=== PATIENT | female | born 1940 | race Caucasian/White ===

== ENCOUNTER 2016-12-26 19:28 | Inpatient (IN) | payer OTHER ==
[2016-12-26] MEDS ORDERED: SODIUM CHLORIDE 500 ML IV STA (19:57)
[2016-12-26] MEDS ORDERED: DUONEB NEB STA (19:58)
--- NOTE | 2016-12-26 20:02 | ED.PDOC ---
General ED Provider: Dr. MARYANN MAYS Chief Complaint: Fever Stated Complaint: patient is a 76 year old femal with a history of Dementia who is brought by Family, lives alone with a two day history of fever and cough productive of sputum. Deneis any shortness of breath, Chest pain or abdominal pain. Has had a poor apatite not drinking enught. she states that she takes her medications in the morning but forget to take her night dose. Time Seen by Physician: 20:02 Mode of Arrival: Walk-In Information Source: Patient Exam Limitations: Dementia Primary Care Provider: MARKEL CONTI Nursing and Triage Documentation Reviewed and Agree: Yes Miscellaneous Complaint Exam - Febrile Illness/Adult Complaint/Exam Onset/Duration: 2 days Symptoms Are: Still present Timing: Constant Highest Temperature Recorded: 101 Initial Severity: Mild Current Severity: Moderate Aggravating: Reports: None Alleviating: Reports: None Associated Signs and Symptoms: Reports: Cough, Altered mental status (per family has been somewhat confused from base line. ). Denies: Headache, Fluid intake, Short of air, Sore throat, Nausea, Vomiting, Chills, Diaphoresis, Dysuria, Arthralgia, Stiff neck, Myalgia, Rash Related History: Reports: Similar episode Pseudomonas Risk Factors: Reports: None Serious Bacterial Infection Risk Factors: Reports: None Current Antibiotic Use: No Specific Findings: Absent: Meningeal signs, Diaphoresis, Joint swelling, Erythema, Cellulitis, Lymphadenopathy, Petechiae, CVA tenderness Differential Diagnoses: Bacteremia, Pneumonia, Sepsis, Viremia Quality Indicators For Pneumonia/CAP: Blood Cultures-SCU admit, SpO2 assessed, Empiric Antibiotic Rx Review of Systems - Review Of Systems Constitutional: Reports: Fever Eyes: Reports: No symptoms Ears, Nose, Mouth, Throat: Reports: No symptoms Respiratory: Reports: Cough Cardiac: Reports: No symptoms GI: Reports: Poor appetite, Poor fluid intake : Reports: No symptoms Musculoskeletal: Reports: No symptoms Skin: Reports: No symptoms Neurological: Reports: Anxiety Endocrine: Reports: No symptoms Hematologic/Lymphatic: Reports: No symptoms All Other Systems: Reviewed and Negative Past Medical History - Past Medical History Previously Healthy: Yes Endocrine: Reports: Hypothyroid, Dyslipidemia Cardiovascular: Reports: None Respiratory: Reports: None Hematological: Reports: None Gastrointestinal: Reports: None Genitourinary: Reports: None Neuro/Psych: Reports: Depression, Dementia Musculoskeletal: Reports: None Cancer: Reports: None Last Menstrual Period: N/A - Surgical History General Surgical History: Reports: Hysterectomy, Orthopedic (Right Knee Replacement ) - Family History Family History: Reports: Unknown - Social History Smoking Status: Current every day smoker Hx Substance Use: No Alcohol Screening: Occasionally Lives: Alone - Immunizations Tetanus Shot up to Date: No (unknown) Physical Exam - Physical Exam Appearance: Ill-appearing, Well-nourished Ill-appearing: Moderate Eyes: CARMEN, EOMI, Conjunctiva clear Neck: Supple Respiratory: Rhonchi (mostly on the Left ) Cardiovascular: RRR, Pulses normal, No rub, No murmur GI/: Soft, Nontender, No masses, Bowel sounds normal, No Organomegaly Musculoskeletal: Normal strength, ROM intact, No edema, No calf tenderness Skin: Warm, Dry, Normal color Neurological: Sensation intact, Motor intact, Reflexes intact, Cranial nerves intact, Alert, Oriented Psychiatric: Anxious Interpretation - Dispensing Audiologist Rate: Normal Rhythm: Other - EKG Interpretation Rate: Normal Rhythm: Other Ectopy: None Stout: NL ST Segment: Normal Interpretation: Atrial fibrillation with normal rate Re-Evaluation - Re-Evaluation Time of Re-Evaluation: 20:39 Status: Improved Vital Signs Stable: Yes (128/93, 98.7) Lungs: Clear (on the upper and anterior, mild basilar rales bilaterally.) Physician Notification - Case Discussed Physician Notified: Conti Time of Notification: 21:20 (Admit to akhtar ) Critical Care Note - Critical Care Note Total Time (mins): 20 Course - Course Hematology/Chemistry: 12/26/16 20:10 12/26/16 20:10 Orders, Labs, Meds: Lab Review 12/26/16 12/26/16 19:51 20:10 WBC 8.09 RBC 4.11 L Hgb 13.9 Hct 40.3 MCV 98.1 MCH 33.8 H MCHC 34.5 RDW Coeff of Kev 12.4 Plt Count 190 Immature Gran % (Auto) 0.2 Neut % (Auto) 81.2 Lymph % (Auto) 10.9 Borden % (Auto) 7.3 Eos % (Auto) 0.2 Baso % (Auto) 0.2 Immature Gran # (Auto) 0.0 Neut # 6.6 Lymph # 0.9 Borden # 0.6 Eos # 0.0 Baso # 0.0 Puncture Site Lb O2 Saturation 88.0 L ABG pH 7.445 ABG pCO2 37.1 ABG pO2 53.0 L* ABG HCO3 25.5 ABG Total CO2 27 ABG Base Excess 1 Jose Luis Test + FiO2 % 21.0 Sodium 136 Potassium 3.7 Chloride 98 Carbon Dioxide 27 Anion Gap 14.7 BUN 21 H Creatinine 0.84 Estimated GFR (MDRD) 66.00 BUN/Creatinine Ratio 25.00 Glucose 120 H Lactic Acid 8.2 Calcium 9.3 Total Bilirubin 0.69 AST 31 ALT 21 Alkaline Phosphatase 52 L Total Protein 7.6 Albumin 4.0 Globulin 3.6 Albumin/Globulin Ratio 1.11 Procalcitonin < 0.05 Orders Category Date Time Status ADMIT PATIENT INPATIENT .TO [facility] (MONITORED BED) ADMISSION 12/26/16 21: 15 Ordered ABG DRAW REQUEST Stat CARDIO 12/26/16 19:51 Completed EKG-(ED ONLY) Stat CARDIO 12/26/16 19:57 Completed EKG-(IP & OP ONLY) Routine CARDIO 12/26/16 21:19 Ordered NEBULIZER TREATMENT Routine CARDIO 12/26/16 21:25 Ordered NEBULIZER TREATMENT Stat CARDIO 12/26/16 19:59 Completed OXYGEN Routine CARDIO 12/26/16 21:15 Ordered ACTIVITY .Up ad Tarsha CARE 12/26/16 21:17 Ordered INTAKE & OUTPUT Q8HR CARE 12/26/16 21:15 Ordered IV ACCESS ONCE CARE 12/26/16 19:51 Active TELEMETRY MONITORING TELE CARE 12/26/16 21:17 Ordered VITAL SIGNS Q4HR CARE 12/26/16 21:17 Ordered REGULAR DIET DIETARY 12/26/16 Breakfast Ordered ED APPLY O2 .ONCE EMERGENCY 12/26/16 19:51 Active ED SPINNING MACHINE OPERATOR APPLIED .ONCE EMERGENCY 12/26/16 19:51 Active ED VITAL SIGNS Q1HR EMERGENCY 12/26/16 19:51 Active IV [ED IV/MEDIPORT/POWERPORT] .ONCE EMERGENCY 12/26/16 20:04 Active ABG Stat LAB 12/26/16 19:51 Completed BASIC METABOLIC PANEL DAILY@0600 LAB 12/27/16 06:00 Ordered BASIC METABOLIC PANEL DAILY@0600 LAB 12/28/16 06:00 Ordered BASIC METABOLIC PANEL DAILY@0600 LAB 12/29/16 06:00 Ordered BASIC METABOLIC PANEL DAILY@0600 LAB 12/30/16 06:00 Ordered BASIC METABOLIC PANEL DAILY@0600 LAB 12/31/16 06:00 Ordered BASIC METABOLIC PANEL DAILY@0600 LAB 01/01/17 06:00 Ordered BASIC METABOLIC PANEL DAILY@0600 LAB 01/02/17 06:00 Ordered BASIC METABOLIC PANEL DAILY@0600 LAB 01/03/17 06:00 Ordered BASIC METABOLIC PANEL DAILY@0600 LAB 01/04/17 06:00 Ordered BASIC METABOLIC PANEL DAILY@0600 LAB 01/05/17 06:00 Ordered BASIC METABOLIC PANEL DAILY@0600 LAB 01/06/17 06:00 Ordered BASIC METABOLIC PANEL DAILY@0600 LAB 01/07/17 06:00 Ordered BASIC METABOLIC PANEL DAILY@0600 LAB 01/08/17 06:00 Ordered BASIC METABOLIC PANEL DAILY@0600 LAB 01/09/17 06:00 Ordered BASIC METABOLIC PANEL DAILY@0600 LAB 01/10/17 06:00 Ordered BASIC METABOLIC PANEL DAILY@0600 LAB 01/11/17 06:00 Ordered BASIC METABOLIC PANEL DAILY@0600 LAB 01/12/17 06:00 Ordered BASIC METABOLIC PANEL DAILY@0600 LAB 01/13/17 06:00 Ordered BASIC METABOLIC PANEL DAILY@0600 LAB 01/14/17 06:00 Ordered BASIC METABOLIC PANEL DAILY@0600 LAB 01/15/17 06:00 Ordered BLOOD CULTURE Stat LAB 12/26/16 20:10 Received CBC W/ AUTO DIFF DAILY@06 LAB 12/27/16 06:00 Ordered CBC W/ AUTO DIFF DAILY@0600 LAB 12/28/16 06:00 Ordered CBC W/ AUTO DIFF DAILY@0600 LAB 12/29/16 06:00 Ordered CBC W/ AUTO DIFF DAILY@0600 LAB 12/30/16 06:00 Ordered CBC W/ AUTO DIFF DAILY@0600 LAB 12/31/16 06:00 Ordered CBC W/ AUTO DIFF DAILY@0600 LAB 01/01/17 06:00 Ordered CBC W/ AUTO DIFF DAILY@0600 LAB 01/02/17 06:00 Ordered CBC W/ AUTO DIFF DAILY@0600 LAB 01/03/17 06:00 Ordered CBC W/ AUTO DIFF DAILY@0600 LAB 01/04/17 06:00 Ordered CBC W/ AUTO DIFF DAILY@0600 LAB 01/05/17 06:00 Ordered CBC W/ AUTO DIFF DAILY@0600 LAB 01/06/17 06:00 Ordered CBC W/ AUTO DIFF DAILY@0600 LAB 01/07/17 06:00 Ordered CBC W/ AUTO DIFF DAILY@0600 LAB 01/08/17 06:00 Ordered CBC W/ AUTO DIFF DAILY@0600 LAB 01/09/17 06:00 Ordered CBC W/ AUTO DIFF DAILY@0600 LAB 01/10/17 06:00 Ordered CBC W/ AUTO DIFF DAILY@0600 LAB 01/11/17 06:00 Ordered CBC W/ AUTO DIFF DAILY@0600 LAB 01/12/17 06:00 Ordered CBC W/ AUTO DIFF DAILY@0600 LAB 01/13/17 06:00 Ordered CBC W/ AUTO DIFF DAILY@0600 LAB 01/14/17 06:00 Ordered CBC W/ AUTO DIFF DAILY@0600 LAB 01/15/17 06:00 Ordered CBC W/ AUTO DIFF Stat LAB 12/26/16 20:10 Completed COMPREHENSIVE METABOLIC PANEL Stat LAB 12/26/16 20:10 Completed LACTIC ACID Stat LAB 12/26/16 20:10 Completed PROCALCITONIN Stat LAB 12/26/16 20:10 Completed URINALYSIS C & S IF INDICATED Stat LAB 12/26/16 20:53 Uncollected 0.9 % Sodium Chloride [Saline Flush] MEDS 12/26/16 20:04 Ordered 1 syr IVF PRN PRN Acetaminophen [Tylenol] MEDS 12/26/16 20:06 Discontinued 650 mg PO ONCE STA Acetaminophen [Tylenol] MEDS 12/26/16 21:15 Ordered 650 mg PO Q4H PRN Aspirin [Aspirin EC] MEDS 12/27/16 09:00 Ordered 81 mg PO DAILY Azithromycin Inj [Zithromax] 500 mg MEDS 12/26/16 20:30 Active 0.9 % Sodium Chloride [Sodium Chloride] 250 ml IV ONCE Azithromycin [Zithromax] MEDS 12/27/16 21:24 Ordered 250 mg PO DAILY Carvedilol [Coreg] MEDS 12/27/16 09:00 Ordered 6.25 mg PO BID Ceftriaxone Sodium [Rocephin] MEDS 12/26/16 20:31 Discontinued 1 gm .ROUTE .STK-MED ONE Ceftriaxone Sodium [Rocephin] 1 gm MEDS 12/27/16 09:00 Ordered 0.9 % Sodium Chloride [Sodium Chloride] 50 ml IV DAILY Ceftriaxone Sodium [Rocephin] 1 gm MEDS 12/26/16 20:30 Active 0.9 % Sodium Chloride [Sodium Chloride] 50 ml IV ONCE Citalopram Hydrobromide [Celexa] MEDS 12/27/16 09:00 Ordered 20 mg PO DAILY Donepezil HCl [Aricept] MEDS 12/27/16 09:00 Ordered 10 mg PO DAILY Enoxaparin Sodium [Lovenox] MEDS 12/26/16 21:15 Stat 100 mg SUBCUT ONCE STA Enoxaparin Sodium [Lovenox] MEDS 12/27/16 09:00 Ordered 100 mg SUBCUT Q12HR Ipratropium/Albuterol Neb [Duoneb] MEDS 12/26/16 19:58 Discontinued 1 vial NEB ONCE STA Ipratropium/Albuterol Neb [Duoneb] MEDS 12/27/16 06:00 Ordered 1 vial NEB RTQID Levothyroxine Sodium [Synthroid] MEDS 12/27/16 09:00 Ordered 50 mcg PO DAILY Memantine HCl [Namenda] MEDS 12/27/16 09:00 Ordered 10 mg PO BID Methylprednisolone Sod Succ/Pf [Solu-Medrol 125 mg] MEDS 12/26/16 21:13 Stat 125 mg IVP ONCE STA Methylprednisolone Sod Succ/Pf [Solu-Medrol 125 mg] MEDS 12/27/16 05:00 Ordered 125 mg IVP Q8HR Ondansetron HCl/Pf [Zofran 4 mg/2 ml] MEDS 12/26/16 21:15 Ordered 4 mg IVP Q6H PRN Pravastatin Sodium [Pravachol] MEDS 12/27/16 09:00 Ordered 40 mg PO DAILY Sodium Chloride 0.9% [Sodium Chloride] 1,000 ml MEDS 12/26/16 21:30 Ordered IV 100 mls/hr Sodium Chloride 0.9% [Sodium Chloride] 500 ml MEDS 12/26/16 19:57 Active IV 250 mls/hr Vitamin B-100 Complex [Balanced B-100] MEDS 12/27/16 09:00 Ordered 1 each PO DAILY RESUSCITATION STATUS Routine OTHERS 12/26/16 21:15 Ordered CHEST, 1V AP ONLY Stat RADS 12/26/16 20:06 Completed OT CONSULTATION Routine THERAPIES 12/26/16 Ordered PT CONSULT Routine THERAPIES 12/26/16 Ordered Medications Generic Name Dose Route Start Last Admin Trade Name Freq PRN Reason Stop Dose Admin Acetaminophen 650 mg 12/26/16 21:15 Tylenol PO Q4H PRN Fever Albuterol/Ipratropium 1 vial 12/27/16 06:00 Chang LAZCANO RTQID [facility] Aspirin 81 mg 12/27/16 09:00 Aspirin Ec PO DAILY [facility] [place] Azithromycin 250 mg 12/27/16 21:24 Zithromax PO 12/30/16 09:01 DAILY [facility] [place] Carvedilol 6.25 mg 12/27/16 09:00 Coreg PO BID [facility] [place] Citalopram Hydrobromide 20 mg 12/27/16 09:00 Celexa PO DAILY [facility] [place] Donepezil HCl 10 mg 12/27/16 09:00 Aricept PO DAILY [facility] [place] Enoxaparin Sodium 100 mg 12/27/16 09:00 Lovenox SUBCUT Q12HR [facility] [place] Sodium Chloride 500 mls @ 250 mls/hr 12/26/16 19:57 12/26/16 20:06 Sodium Chloride IV 12/26/16 21:56 250 mls/hr .Q2H STA Administration Azithromycin 500 mg/ Sodium 250 mls @ 125 mls/hr 12/26/16 20:30 Chloride IV 12/26/16 22:29 ONCE STA Ceftriaxone Sodium 1 gm/ 50 mls @ 75 mls/hr 12/27/16 09:00 Sodium Chloride IV DAILY [facility] [place] Sodium Chloride 1,000 mls @ 100 mls/hr 12/26/16 21:30 Sodium Chloride IV .Q10H [facility] [place] Levothyroxine Sodium 50 mcg 12/27/16 09:00 Synthroid PO DAILY [facility] [place] Memantine 10 mg 12/27/16 09:00 Namenda PO BID [facility] [place] Methylprednisolone Sodium Succinate 125 mg 12/27/16 05:00 Solu-Medrol 125 Mg IVP Q8HR [facility] [place] Ondansetron HCl 4 mg 12/26/16 21:15 Zofran 4 Mg/2 Ml IVP Q6H PRN Nausea / Vomiting Pravastatin Sodium 40 mg 12/27/16 09:00 Pravachol PO DAILY [facility] [place] Sodium Chloride 1 syr 12/26/16 20:04 Saline Flush IVF PRN PRN To flush IV Vitamin B Complex tab 12/27/16 09:00 Balanced B-100 PO DAILY [facility] [place] Discontinued Medications Generic Name Dose Route Start Last Admin Trade Name Xavier PRN Reason Stop Dose Admin Acetaminophen 650 mg 12/26/16 20:06 12/26/16 20:15 Tylenol PO 12/26/16 20:07 650 mg ONCE STA Administration Albuterol/Ipratropium 1 vial 12/26/16 19:58 12/26/16 20:06 Duoneb NEB 12/26/16 19:59 1 vial ONCE STA Administration Enoxaparin Sodium 100 mg 12/26/16 21:15 Lovenox SUBCUT 12/26/16 21:16 ONCE STA Ceftriaxone Sodium 1 gm/ 50 mls @ 75 mls/hr 12/26/16 20:30 12/26/16 20:39 Sodium Chloride IV 12/26/16 21:09 Not Given ONCE STA Methylprednisolone Sodium Succinate 125 mg 12/26/16 21:13 12/26/16 21:19 Solu-Medrol 125 Mg IVP 12/26/16 21:14 125 mg ONCE STA Administration Vital Signs: Temp Pulse Resp BP Pulse Ox 12/26/16 19:51 101.9 F H 90 22 162/100 H 98 12/26/16 19:28 101.8 F H 92 H 16 134/88 94 L Departure - Departure Time of Disposition: 21:30 Disposition: ADMITTED INPATIENT Discharge Problem: Hypoxia, Weakness Acute bronchitis Qualifiers: Bronchitis organism: other organism Qualifier Code: (J20.8) Acute bronchitis due to other specified organisms Atrial fibrillation Qualifiers: Atrial fibrillation type: unspecified Qualifier Code: (I48.91) Unspecified atrial fibrillation Condition: Stable Pt referred to PMD for follow-up: Yes Allergies/Adverse Reactions: Allergies codiene Allergy (Uncoded 12/26/16 19:38) tetanus shot Allergy (Uncoded 12/26/16 19:38) Home Medications: Ambulatory Orders Aspirin [Aspir 81] 81 mg PO DAILY 10/28/15 Carvedilol 6.25 mg PO BID 10/28/15 Citalopram Hydrobromide [Celexa] 20 mg PO DAILY 10/28/15 Donepezil HCl 10 mg PO DAILY 10/28/15 Levothyroxine Sodium 50 mcg PO DAILY 10/28/15 Memantine HCl 10 mg PO BID 10/28/15 Pravastatin Sodium 40 mg PO DAILY 10/28/15 Vitamin B Complex 1 each PO DAILY 10/28/15 Ginkgo Biloba 40 mg PO 12/26/16 Disposition Discussed With: Patient, Family
[2016-12-26] MEDS ORDERED: TYLENOL PO STA (20:06)
[2016-12-26 20:19] LABS: BASOPHILS % (AUTO) 0.2 % (0.0-3.0); EOSINOPHILS % (AUTO) 0.2 % (0.0-7.0); HEMATOCRIT 40.3 % (37.0-47.0); HEMOGLOBIN 13.9 g/dl (12.0-16.0); IMMATURE GRANULOCYTE % (AUTO) 0.2 % (0.0-5.0); LYMPHOCYTES # (AUTO) 0.9 K/uL (0.60-3.4); LYMPHOCYTES % (AUTO) 10.9 (10.0-50.0); MEAN CORPUSCULAR HEMOGLOBIN 33.8 pg (27.0-31.0); MEAN CORPUSCULAR HGB CONC 34.5 (31.8-35.4); MEAN CORPUSCULAR VOLUME 98.1 fl (81.0-99.0); MONOCYTES # (AUTO) 0.6 K/uL (0.4-2.0); MONOCYTES % (AUTO) 7.3 (0-10); NEUTROPHILS # (AUTO) 6.6 K/ul (2.0-6.9); NEUTROPHILS % (AUTO) 81.2; PLATELET COUNT 190 10^3/uL (140-440); RED BLOOD COUNT 4.11 10^6/ul (4.20-5.40); WHITE BLOOD COUNT 8.09 K/ul (4.6-10.2)
[2016-12-26 20:19] LABS: ABG PCO2 37.1 mmHg (35-45); ABG PH 7.445 (7.35-7.45)
[2016-12-26 20:20] LABS: ABG BASE EXCESS 1 (-2.0-2.0); ABG HCO3 25.5 (22.0-26.0); ABG TCO2 27 (22.0-28.0)
[2016-12-26] MEDS ORDERED: ZITHROMAX 500 MG in SODIUM CHLORIDE 250 ML IV STA (20:30)
[2016-12-26] MEDS ORDERED: ROCEPHIN 1 GM in SODIUM CHLORIDE 50 ML IV STA (20:30)
[2016-12-26] MEDS ORDERED: ROCEPHIN ONE (20:31)
--- NOTE | 2016-12-26 20:36 | DI ---
EXAM: Single view chest COMPARISON: None HISTORY: Cough and fever FINDINGS: Lungs are clear with no lobar consolidation, failure, large effusion or significant atele ctasis. There is some relative elevation of the left hemidiaphragm. Cardiac and mediastinal silhouet jose are unremarkable. No acute soft tissue or osseous abnormalities. IMPRESSION: No active disease.
[2016-12-26 20:37] LABS: ALBUMIN/GLOBULIN RATIO 1.11; ANION GAP 14.7; BILIRUBIN,TOTAL 0.69 mg/dL (0.00-1.20); CALCIUM 9.3 mg/dL (8.2-10.2); CREATININE 0.84 mg/dL (0.60-1.30); POTASSIUM 3.7 mmol/L (3.5-5.10); TOTAL PROTEIN 7.6 g/dL (5.8-8.1)
[2016-12-26] MEDS ORDERED: SODIUM CHLORIDE 50 ML IV ONE (20:39)
[2016-12-26] MEDS ORDERED: SOLU-MEDROL 125 MG IVP STA (21:13)
[2016-12-26] MEDS ORDERED: LOVENOX SUBCUT STA (21:15)
[2016-12-26] MEDS ORDERED: ZOFRAN 4 MG/2 ML IVP PRN (21:15)
[2016-12-26] MEDS ORDERED: TYLENOL PO PRN (21:15)
[2016-12-26] MEDS ORDERED: SODIUM CHLORIDE 1,000 ML IV SCH (21:30)
[2016-12-26 23:00] VITALS: BMI 26.6
[2016-12-27 04:50] LABS: BASOPHILS % (AUTO) 0.2 % (0.0-3.0); HEMATOCRIT 41.3 % (37.0-47.0); HEMOGLOBIN 13.8 g/dl (12.0-16.0); IMMATURE GRANULOCYTE % (AUTO) 0.5 % (0.0-5.0); LYMPHOCYTES # (AUTO) 0.6 K/uL (0.60-3.4); LYMPHOCYTES % (AUTO) 10.1 (10.0-50.0); MEAN CORPUSCULAR HEMOGLOBIN 33.2 pg (27.0-31.0); MEAN CORPUSCULAR HGB CONC 33.4 (31.8-35.4); MEAN CORPUSCULAR VOLUME 99.3 fl (81.0-99.0); MONOCYTES # (AUTO) 0.1 K/uL (0.4-2.0); MONOCYTES % (AUTO) 1.6 (0-10); NEUTROPHILS # (AUTO) 5.6 K/ul (2.0-6.9); NEUTROPHILS % (AUTO) 87.6; PLATELET COUNT 183 10^3/uL (140-440); RED BLOOD COUNT 4.16 10^6/ul (4.20-5.40); WHITE BLOOD COUNT 6.33 K/ul (4.6-10.2)
[2016-12-27 05:06] LABS: ANION GAP 14.1; CALCIUM 8.9 mg/dL (8.2-10.2); CREATININE 0.8 mg/dL (0.60-1.30); POTASSIUM 4.1 mmol/L (3.5-5.10)
[2016-12-27] MEDS: SOLU-MEDROL 125 MG IVP SCH ×3 (05:20→20:15)
[2016-12-27] MEDS: DUONEB NEB SCH ×4 (05:40→21:44)
[2016-12-27 05:49] LABS: ADD URINE MICROSCOPIC YES; BILIRUBIN,URINE Negative (NEGATIVE); KETONES,URINE 2+ (NEGATIVE); LEUKOCYTE ESTERASE ,URINE Negative (NEGATIVE); NITRITE,URINE Negative (NEGATIVE); PROTEIN,URINE 2+ (NEGATIVE); URINE, BLOOD 1+ (NEGATIVE)
[2016-12-27 05:50] LABS: BACTERIA,URINE TRACE (NOT PRESENT)
[2016-12-27] MEDS: BALANCED B-100 PO SCH (08:41)
[2016-12-27] MEDS: SYNTHROID PO SCH (08:41)
[2016-12-27] MEDS: NAMENDA PO SCH ×2 (08:41→20:53)
[2016-12-27] MEDS: CELEXA PO SCH (08:41)
[2016-12-27] MEDS: ASPIRIN EC PO SCH (08:41)
[2016-12-27] MEDS: COREG PO SCH ×2 (08:42→17:08)
[2016-12-27] MEDS: PRAVACHOL PO SCH (08:42)
[2016-12-27] MEDS: ARICEPT PO SCH (08:44)
[2016-12-27] MEDS ORDERED: LOVENOX SUBCUT SCH (09:00)
--- NOTE | 2016-12-27 10:39 | PCM.PROG ---
Attending Provider: ATTENDING PROVIDER: Dr. MARKEL ZUNIGA DATE OF SERVICE: 12/27/16 SUBJECTIVE: This 76 year old WHITE/ F was hospitalized 12/26/16 with hypoxemia, acute bronchitis, weakness and atrial fibrillation. The patient reports she feels she is coughing more and feels short of breath; in no distress. The patient is on oxygen at 2L. No fever since last night. REVIEW OF SYSTEMS: CONSTITUTIONAL: No night sweats. Weakness. No fever or chills. HEENT: Eyes: No visual changes. No eye pain. No eye discharge. ENT: No runny nose. No epistaxis. No sinus pain. No odynophagia. No congestion. RESPIRATORY: Cough and congestion. No hemoptysis. CARDIOVASCULAR: No angina symptoms. No CHF symptoms. No atypical chest pain for CAD. No palpitations. Shortness of breath. GASTROINTESTINAL: No abdominal pain. No nausea or vomiting. No diarrhea or constipation. No hematemesis. No hematochezia. GENITOURINARY: No urgency. No frequency. No dysuria. No hematuria. No obstructive symptoms. No discharge. No pain. No significant abnormal bleeding. MUSCULOSKELETAL: No musculoskeletal pain; no joint swelling. NEUROLOGICAL: Awake, alert, oriented to time, place and person. No headache. No neck pain. No syncope. No seizures. No dizziness. PSYCHIATRIC: Has some confusion. Not anxious. No depression. No suicidal thoughts. No homicidal thoughts. SKIN: No rash. No lesions. No wounds. ENDOCRINE: No unexplained weight loss. No weight gain. HEMATOLOGIC/LYMPHATIC: No anemia. No purpura. No petechiae. No prolonged or excessive bleeding. No palpable lymph nodes. PHYSICAL EXAMINATION: GENERAL: The patient is awake, alert with some confusion lying in bed in no distress. VITAL SIGNS: Temperature 97.5 F, Pulse 72, Respiratory Rate 19, BP 110/68, Pulse Ox 97% HEENT: Head normocephalic, atraumatic. Eyes: Extraocular muscles are intact. Pupils are equal, round and reactive to light and accommodation. Ears: No lesions. Nose appeared normal. Throat: No exudate or erythema. NECK: Supple. No JVD, no carotid bruit. No lymphadenopathy or thyromegaly. LUNGS: Decreased breath sounds with bilateral rhonchi. HEART: Heart rate is irregularly irregular consistent with atrial fibrillation. No cyanosis or clubbing. No ascites. Pulses: Dorsalis pedis and posterior tibial pulses +1 to +2 both sides. ABDOMEN: Soft. Non-tender. Bowel sounds active. No CVA tenderness. No mass felt. EXTREMITIES: No edema. Full range of motion of all extremities, equal. NEUROLOGIC: No focal deficit. Cranial nerves II through XII are grossly intact. No headache, no double vision or headache. SKIN: Not dry. Intact. Turgor-normal. LYMPHATIC: No palpable lymph nodes/no lymphedema. MUSCULOSKELETAL: Normal joints with no swelling. Muscle tone is normal. LAB REVIEW: 12/27/16 04:46 12/27/16 04:46 12/27/16 04:46: WBC 6.33, RBC 4.16 L, Hgb 13.8, Hct 41.3, MCV 99.3 H, MCH 33.2 H , MCHC 33.4, RDW Coeff of Kev 12.1, Plt Count 183, Immature Gran % (Auto) 0.5, Neut % (Auto) 87.6, Lymph % (Auto) 10.1, Craig % (Auto) 1.6, Eos % (Auto) 0.0, Baso % (Auto) 0.2, Immature Gran # (Auto) 0.0, Neut # 5.6, Lymph # 0.6, Craig # 0.1 L, Eos # 0.0, Baso # 0.0, Sodium 136, Potassium 4.1, Chloride 100, Carbon Dioxide 26, Anion Gap 14.1, BUN 20 H, Creatinine 0.80, Estimated GFR (MDRD) 70.00, BUN/Creatinine Ratio 25.00, Glucose 127 H, Calcium 8.9 ASSESSMENT: 1. Acute bronchitis 2. Hypoxemia 3. Atrial fibrillation 4. Generalized weakness 5. History of dementia PLAN: 1. Decrease IV fluids to 42 mL/hr 2. Continue Zithromax and Rocephin 3. Continue telemetry protocol 4. Decrease Lovenox from b.i.d. to 100 mg daily 5. Will check to see when last echocardiogram was done 6. Continue Solu-Medrol Plan and coordination of the patient's care discussed in the presence of Digital Forensic Analyst and nurse. CONDITION: Stable SCRIBED BY: Alirio RAMIREZ scribed while in presence of service performed by Dr. MARKEL ZUNIGA/MYA LIMA APRN on 12/27/16 ([id number])
--- NOTE | 2016-12-27 11:13 | PN ---
DATE OF SERVICE: 12/26/16 SUBJECTIVE: The patient is a 76 year old white female came to the emergency room because of fever chills, cough and congestion of nearly 3-4 days duration. The patient has history of Chronic lung disease, asthma. The patient was seen and examined in the Emergency Room attending. Dr. Zhu called me about the patient's blood gases which showed a pO2 53, pCO2 37, pH 7.40 with 88% saturation on room air. REVIEW OF SYSTEMS: CONSTITUTIONAL: No night sweats. No fatigue, malaise, lethargy. No fever or chills. HEENT: Eyes: No visual changes. No eye pain. No eye discharge. ENT: No runny nose. No epistaxis. No sinus pain. No sore throat. No odynophagia. No congestion. RESPIRATORY: No cough, no congestion. No hemoptysis. CARDIOVASCULAR: No angina symptoms. No CHF symptoms. No atypical chest pain for CAD. No palpitations. No shortness of breath. GASTROINTESTINAL: No abdominal pain. No nausea or vomiting. No diarrhea or constipation. No hematemesis. No hematochezia. GENITOURINARY: No urgency. No frequency. No dysuria. No hematuria. No obstructive symptoms. No discharge. No pain. No significant abnormal bleeding. MUSCULOSKELETAL: No musculoskeletal pain; no joint swelling. NEUROLOGICAL: No headache. No neck pain. No syncope. No seizures. No dizziness. PSYCHIATRIC: Not anxious. No depression. No suicidal thoughts. No homicidal thoughts. SKIN: No rash. No lesions. No wounds. ENDOCRINE: No unexplained weight loss. No weight gain. HEMATOLOGIC/LYMPHATIC: No anemia. No purpura. No petechiae. No prolonged or excessive bleeding. No palpable lymph nodes. PHYSICAL EXAMINATION: GENERAL: The patient is oriented to place and person and looks somewhat pale. VITAL SIGNS: HEENT: Head normocephalic, atraumatic. Eyes: Extraocular muscles are intact. Pupils are equal, round and reactive to light and accommodation. Ears: No lesions. Nose appeared normal. Throat: No exudate or erythema. NECK: Supple. No JVP, no carotid bruit. No lymphadenopathy or thyromegaly. LUNGS: Decreased but clear to auscultation. Percussion note normal. Chest symmetrical. HEART: S1, S2, no S3. No murmurs. No cyanosis or clubbing. No ascites. Pulses: Dorsalis pedis and posterior tibial pulses +1 to +2 both sides. ABDOMEN: Soft. Nontender. Bowel sounds active. No CVA tenderness. No mass felt. EXTREMITIES: No edema. Full range of motion of all extremities, equal. NEUROLOGIC: No focal deficit. Cranial nerves II through XII are grossly intact. No headache, no double vision or headache. SKIN: Not dry. Intact. Turgor - normal. LYMPHATIC: No palpable lymph nodes/no lymphedema. MUSCULOSKELETAL: Normal joints with no swelling. Muscle tone is normal. LABS: Chest x-ray looked normal. ASSESSMENT: 1. Pneumonitis/Bronchitis 2. Respiratory failure 3. History of Bronchial asthma PLAN: 1. Antibiotics Azithromycin and Rocephin 2. Solu-Medrol 125mg Q 8 hours 3. NEBS treatment 4. Two Tylenol 6 hourly for fever over 100 5. IV fluids 6. EKG 7. Telemetry 8. Daily CBC and CMP CONDITION: Stable TIME SPENT: More than 30 minutes. ADDENDUM: The patient had an EKG done which showed atrial fibrillation with rate of 85 per minute; will start the patient on Lovenox 1mg per kg to evaluate her further echocardiogram. Examined the old chart to see what her rhythm was in the past. Likely if she has a new atrial fib which could be from high fever. Plan and coordination of the patient's care discussed in the presence of nurse. MARIA LUISA
[2016-12-27] MEDS: SODIUM CHLORIDE 1,000 ML IV SCH ×2 (12:58→18:59)
[2016-12-27] MEDS: ROCEPHIN 1 GM in SODIUM CHLORIDE 50 ML IV SCH (20:52)
[2016-12-27] MEDS: ZITHROMAX PO SCH (20:53)
[2016-12-28] MEDS ORDERED: ATIVAN IVP STA (03:03)
[2016-12-28 04:42] LABS: BASOPHILS % (AUTO) 0.2 % (0.0-3.0); HEMATOCRIT 40.4 % (37.0-47.0); HEMOGLOBIN 13.9 g/dl (12.0-16.0); IMMATURE GRANULOCYTE % (AUTO) 0.3 % (0.0-5.0); LYMPHOCYTES # (AUTO) 1.1 K/uL (0.60-3.4); LYMPHOCYTES % (AUTO) 11.5 (10.0-50.0); MEAN CORPUSCULAR HEMOGLOBIN 32.9 pg (27.0-31.0); MEAN CORPUSCULAR HGB CONC 34.4 (31.8-35.4); MEAN CORPUSCULAR VOLUME 95.5 fl (81.0-99.0); MONOCYTES # (AUTO) 0.3 K/uL (0.4-2.0); MONOCYTES % (AUTO) 3.1 (0-10); NEUTROPHILS # (AUTO) 7.8 K/ul (2.0-6.9); NEUTROPHILS % (AUTO) 84.9; PLATELET COUNT 205 10^3/uL (140-440); RED BLOOD COUNT 4.23 10^6/ul (4.20-5.40); WHITE BLOOD COUNT 9.16 K/ul (4.6-10.2)
[2016-12-28] MEDS ORDERED: HALDOL IM STA ×3 (04:48→23:22)
[2016-12-28] MEDS: SOLU-MEDROL 125 MG IVP SCH ×3 (04:58→20:18)
[2016-12-28 05:03] LABS: ANION GAP 14.4; BUN/CREATININE RATIO 21.05; CALCIUM 9.1 mg/dL (8.2-10.2); CREATININE 0.76 mg/dL (0.60-1.30); POTASSIUM 3.4 mmol/L (3.5-5.10)
[2016-12-28] MEDS: DUONEB NEB SCH ×4 (05:41→19:48)
[2016-12-28] MEDS: SYNTHROID PO SCH (05:57)
[2016-12-28] MEDS ORDERED: POTASSIUM CHLORIDE 10 MEQ VIAL-ADDITIVE ONLY 20 MEQ in SODIUM CHLORIDE 1,000 ML IV SCH (08:28)
[2016-12-28] MEDS: ASPIRIN EC PO SCH (09:00)
[2016-12-28] MEDS: ARICEPT PO SCH (09:01)
[2016-12-28] MEDS: COREG PO SCH ×2 (09:01→17:33)
[2016-12-28] MEDS: PRAVACHOL PO SCH (09:02)
[2016-12-28] MEDS: CELEXA PO SCH (09:02)
[2016-12-28] MEDS: RISPERDAL PO SCH ×2 (09:02→20:17)
[2016-12-28] MEDS: BALANCED B-100 PO SCH (09:02)
[2016-12-28] MEDS: NAMENDA PO SCH ×2 (09:02→20:17)
[2016-12-28] MEDS: LOVENOX SUBCUT SCH (09:03)
--- NOTE | 2016-12-28 11:03 | ECHO2D ---
Date of Exam: 12/27/16 Ordering Physician: MARKEL ZUNIGA Reason for Echo: A-FIB, WEAKNESS M-Mode Normal Adult Results LV Dimensions Normal Adult Results AoV Opening excursions >1.6 >1.6 LVEDD-base- 3.5-5.8 4.0 Ao root dimensions 2.0-3.7 3.0 LVESD-base- 3.1-4.6 L. Atrium dimensions 1.9-3.8 5.2 Post. Wall thickness 0.8-1.1 1.2 IV septum (thickness) 0.7-1.2 1.2 Post. Wall excursion 0.72-1.3 NORMAL Septal motion NORMAL Systolic motion R. Ventricular cavity 1.5-2.0 NORMAL LVEF 60% 72% Paradoxical septal wall motion NORMAL 2-D : NORMAL LEFT VENTRICULAR CONTRACTILITY--NO EFFUSION, NO THROMBUS, ENLARGED LEFT ATRIAL CAVITY--MITRAL VALVE PROLAPSE WITH LEFT PARASTERNAL LONG AXIS AND APICAL FOUR CHAMBER VIEW M-MODE: MV: MITRAL VALVE PROLAPSE LATE SYSTOLIC AV: NORMAL TV: NORMAL PV: CHAMBER SIZE: ENLARGED LEFT ATRIAL CAVITY WALL MOTION: NORMAL PERICARDIUM: NORMAL INTERPRETATION: 1. MITRAL VALVE PROLAPSE LATE SYSTOLIC 2. MILD LEFT VENTRICULAR HYPERTROPHY 3. ENLARGED LEFT ATRIAL CAVITY 4. NORMAL LEFT VENTRICULAR CONTRACTILITY 5. NORMAL VALVES MTDD
--- NOTE | 2016-12-28 11:45 | PCM.PROG ---
Attending Provider: ATTENDING PROVIDER: Dr. MARKEL ZUNIGA DATE OF SERVICE: 12/28/16 SUBJECTIVE: This 76 year old WHITE/ F was hospitalized 12/26/16. The patient is up in wheelchair at nurse's station with on and off bouts of confusion. During the night, the patient was given Ativan and Haldol for acute confusion. The patient has history of dementia. She is no longer on o2 with 93% on room air at nurse's station. REVIEW OF SYSTEMS: CONSTITUTIONAL: No night sweats. No fatigue, malaise, lethargy. No fever or chills. HEENT: Eyes: No visual changes. No eye pain. No eye discharge. ENT: No runny nose. No epistaxis. No sinus pain. No odynophagia. No congestion. RESPIRATORY: Cough. No hemoptysis. CARDIOVASCULAR: No angina symptoms. No CHF symptoms. No atypical chest pain for CAD. No palpitations. No shortness of breath. GASTROINTESTINAL: No abdominal pain. No nausea or vomiting. No diarrhea or constipation. No hematemesis. No hematochezia. GENITOURINARY: No urgency. No frequency. No dysuria. No hematuria. No obstructive symptoms. No discharge. No pain. No significant abnormal bleeding. MUSCULOSKELETAL: No musculoskeletal pain; no joint swelling. NEUROLOGICAL: Confusion. No headache. No neck pain. No syncope. No seizures. No dizziness. PSYCHIATRIC: Not anxious. No depression. No suicidal thoughts. No homicidal thoughts. SKIN: No rash. No lesions. No wounds. ENDOCRINE: No unexplained weight loss. No weight gain. HEMATOLOGIC/LYMPHATIC: No anemia. No purpura. No petechiae. No prolonged or excessive bleeding. No palpable lymph nodes. PHYSICAL EXAMINATION: GENERAL: The patient is awake, alert but not oriented, in no distress. VITAL SIGNS: Temperature 98 F, Pulse 88, Respiratory Rate 18, BP 134/93, Pulse Ox 98% HEENT: Head normocephalic, atraumatic. Eyes: Extraocular muscles are intact. Pupils are equal, round and reactive to light and accommodation. Ears: No lesions. Nose appeared normal. Throat: No exudate or erythema. NECK: Supple. No JVD, no carotid bruit. No lymphadenopathy or thyromegaly. LUNGS: Bilateral rhonchi, improving. Percussion note normal. Chest symmetrical. HEART: S1, S2, no S3. Heart rate irregular in atrial fibrillation. No cyanosis or clubbing. No ascites. Pulses: Dorsalis pedis and posterior tibial pulses +1 to +2 both sides. ABDOMEN: Soft. Non-tender. Bowel sounds active. No CVA tenderness. No mass felt. EXTREMITIES: No edema. Full range of motion of all extremities, equal. NEUROLOGIC: No focal deficit. Cranial nerves II through XII are grossly intact. No headache, no double vision or headache. SKIN: Not dry. Intact. Turgor-normal. LYMPHATIC: No palpable lymph nodes/no lymphedema. MUSCULOSKELETAL: Normal joints with no swelling. Muscle tone is normal. LAB REVIEW: 12/28/16 04:38 12/28/16 04:38 12/28/16 04:38: WBC 9.16, RBC 4.23, Hgb 13.9, Hct 40.4, MCV 95.5, MCH 32.9 H, MCHC 34.4, RDW Coeff of Kev 11.8, Plt Count 205, Immature Gran % (Auto) 0.3, Neut % (Auto) 84.9, Lymph % (Auto) 11.5, Mineral % (Auto) 3.1, Eos % (Auto) 0.0, Baso % (Auto) 0.2, Immature Gran # (Auto) 0.0, Neut # 7.8 H, Lymph # 1.1, Mineral # 0.3 L, Eos # 0.0, Baso # 0.0, Sodium 134 L, Potassium 3.4 L, Chloride 101, Carbon Dioxide 22 L, Anion Gap 14.4, BUN 16, Creatinine 0.76, Estimated GFR ( MDRD) 74.00, BUN/Creatinine Ratio 21.05, Glucose 155 H, Calcium 9.1 ASSESSMENT: 1. Acute bronchitis, improving 2. Hypoxemia resolved 3. Generalized weakness 4. Atrial fibrillation 5. Dementia with behavioral disturbances PLAN: 1. Discharge with 02 as tolerates. 2. Potassium 3.4, will add 20 mEq potassium 3. Fall precaution - closely monitor by nursing staff 4. Continue telemetry 5. Continue Rocephin, Zithromax and Solu-Medrol 6. The patient is improving. Plan and coordination of the patient's care discussed in the presence of Rn Surgical and nurse. CONDITION: Stable SCRIBED BY: KAREY WILSON, Manager Hospice scribed while in presence of service performed by Dr. MARKEL ZUNIGA/MYA LIMA APRN on 12/28/16 (08)
[2016-12-28] MEDS ORDERED: SODIUM CHLORIDE 0.9%-KCL 20 MEQ 1,000 ML IV SCH (17:00)
[2016-12-28] MEDS: ROCEPHIN 1 GM in SODIUM CHLORIDE 50 ML IV SCH (20:16)
[2016-12-28] MEDS: ZITHROMAX PO SCH (20:17)
[2016-12-29] MEDS: SOLU-MEDROL 125 MG IVP SCH (04:44)
[2016-12-29] MEDS: DUONEB NEB SCH ×2 (05:55→10:18)
[2016-12-29] MEDS: SYNTHROID PO SCH (05:56)
[2016-12-29 06:07] LABS: HEMATOCRIT 38.5 % (37.0-47.0); HEMOGLOBIN 13.3 g/dl (12.0-16.0); IMMATURE GRANULOCYTE % (AUTO) 0.3 % (0.0-5.0); LYMPHOCYTES # (AUTO) 0.9 K/uL (0.60-3.4); LYMPHOCYTES % (AUTO) 12.8 (10.0-50.0); MEAN CORPUSCULAR HEMOGLOBIN 33.3 pg (27.0-31.0); MEAN CORPUSCULAR HGB CONC 34.5 (31.8-35.4); MEAN CORPUSCULAR VOLUME 96.3 fl (81.0-99.0); MONOCYTES # (AUTO) 0.2 K/uL (0.4-2.0); MONOCYTES % (AUTO) 2.5 (0-10); NEUTROPHILS # (AUTO) 5.8 K/ul (2.0-6.9); NEUTROPHILS % (AUTO) 84.4; PLATELET COUNT 193 10^3/uL (140-440); WHITE BLOOD COUNT 6.87 K/ul (4.6-10.2)
[2016-12-29 06:27] LABS: ANION GAP 9.6; BUN/CREATININE RATIO 20.51; CALCIUM 8.8 mg/dL (8.2-10.2); CREATININE 0.78 mg/dL (0.60-1.30); POTASSIUM 3.6 mmol/L (3.5-5.10)
[2016-12-29] MEDS: ASPIRIN EC PO SCH (08:30)
[2016-12-29] MEDS: COREG PO SCH (08:31)
--- NOTE | 2016-12-29 09:23 | HP ---
DATE OF SERVICE: 12/26/16 HISTORY OF PRESENT ILLNESS: The patient was brought to the ER by a family member. She has a history of dementia. She was brought in with a history of fever and cough times two days with productive sputum, mild shortness of breath. She has no chest pain or abdominal pain. She has had a poor appetite and has not been drinking very well. She is subsequently admitted with acute bronchitis. REVIEW OF SYSTEMS: CONSTITUTIONAL: Fever. No night sweats. No fatigue, malaise, lethargy. HEENT: Eyes: No visual changes. No eye pain. No eye discharge. ENT: No runny nose. No epistaxis. No sinus pain. No sore throat. No odynophagia. No ear pain. No congestion. RESPIRATORY: Cough. No hemoptysis. CARDIOVASCULAR: No angina symptoms. No CHF symptoms. No atypical chest pain for CAD. No palpitations. Shortness of breath. GASTROINTESTINAL: Poor appetite. No abdominal pain. No nausea or vomiting. No diarrhea or constipation. No hematemesis. No hematochezia. GENITOURINARY: No urgency. No frequency. No dysuria. No hematuria. No obstructive symptoms. No discharge. No pain. No significant abnormal bleeding. MUSCULOSKELETAL: Generalized weakness. . NEUROLOGICAL: History of dementia. Has bouts of confusion. No headache. No neck pain. No syncope. No seizures. No dizziness. PSYCHIATRIC: Anxious. No depression. No suicidal thoughts. No homicidal thoughts. SKIN: No rash. No lesions. No wounds. ENDOCRINE: No unexplained weight loss. No weight gain. HEMATOLOGIC/LYMPHATIC: No anemia. No purpura. No petechiae. No prolonged or excessive bleeding. No palpable lymph nodes. PERSONAL/FAMILY/SOCIAL HISTORY: The patient is a nonsmoker, no history of substance abuse. No history of alcoholism. PAST MEDICAL HISTORY: 1. Hypothyroidism 2. Dyslipidemia 3. Depression 4. Dementia 5. COPD 6. History of atrial fibrillation with refusal of blood thinners PAST SURGICAL HISTORY: 1. Hysterectomy 2. Total right knee replacement MEDICATIONS: 1. Citalopram (Celexa) 20 mg p.o. daily 2. Aspirin 81 mg p.o. bedtime 3. Vitamin B Complex one each p.o. daily 4. Levothyroxine 50 mcg p.o. daily 5. Carvedilol 6.25 mg p.o.b.i.d. 6. Memantine 10 mg p.o. daily 7. Pravastatin 40 mg p.o. bedtime 8. Donepezil 10 mg p.o. bedtime ALLERGIES: CODEINE, TETANUS SHOT LABS: EKG showed atrial fibrillation with normal rate. Chest x-ray was normal with no active disease. WBC 8,000. Hemoglobin 13.9, hematocrit 40.3. ABG - pH 7.4, pc02 37.1, p02 53, HC03 25.5. Total c02 27, BUN 21, creatinine 0.84. PHYSICAL EXAMINATION: VITAL SIGNS: Temperature 101, pulse 92, BP 134/88, 02 sat 94, respiratory rate 16. Height 5'7". Weight 200 lb. HEENT: Head normocephalic, atraumatic. Eyes: Extraocular muscles are intact. Pupils are equal, round and reactive to light and accommodation. Ears: No lesions. Nose appeared normal. Throat: No exudate or erythema. NECK: Supple. No JVD, no carotid bruit. No lymphadenopathy or thyromegaly. LUNGS: Clear to auscultation. Percussion note normal. Chest symmetrical. HEART: S1, S2, irregular rate and rhythm consistent with atrial fibrillation. No cyanosis or clubbing. No ascites. Pulses: Dorsalis pedis and posterior tibial pulses +1 to +2 both sides. ABDOMEN: Soft. Nontender. Bowel sounds active times four quadrants. No CVA tenderness. No mass felt. EXTREMITIES: No edema. Full range of motion of all extremities, equal. NEUROLOGIC: Alert, oriented times two. No focal deficit. Cranial nerves II through XII are grossly intact. No headache, no double vision or headache. SKIN: No breakdown. LYMPHATIC: No palpable lymph nodes/no lymphedema. MUSCULOSKELETAL: Generalized weakness from poor appetite and illness. ASSESSMENT: 1. ACUTE BRONCHITIS 2. ATRIAL FIBRILLATION 3. COPD 4. HYPOXEMIA 5. GENERALIZED WEAKNESS PLAN: 1. Admit the patient 2. IV Rocephin q.24 hr 3. Zithromax p.o. 4. CBC, CMP daily 5. 02 via nasal cannula at 2L as tolerated 6. IV fluids 7. Monitor I & O 8. Routine telemetry orders 9. Duonebs q.i.d. 10. The patient is a full code 11. Fall precautions 12. Tylenol for fever 13. Continue all home medications TIME SPENT: More than 70 minutes. MTDD
--- NOTE | 2016-12-29 09:37 | PN ---
DATE OF SERVICE: 12/27/16 SUBJECTIVE: 76-year-old white female hospitalized with acute respiratory failure, acute bronchitis. The patient also has atrial fib with normal ventricular response. The patient is feeling better. REVIEW OF SYSTEMS: CONSTITUTIONAL: No night sweats. No fatigue, malaise, lethargy. No fever or chills. HEENT: Eyes: No visual changes. No eye pain. No eye discharge. ENT: No runny nose. No epistaxis. No sinus pain. No sore throat. No odynophagia. No congestion. RESPIRATORY: Mild cough, no congestion. No hemoptysis. CARDIOVASCULAR: No angina symptoms. No CHF symptoms. No atypical chest pain for CAD. No palpitations. Shortness of breath. GASTROINTESTINAL: No abdominal pain. No nausea or vomiting. No diarrhea or constipation. No hematemesis. No hematochezia. GENITOURINARY: No urgency. No frequency. No dysuria. No hematuria. No obstructive symptoms. No discharge. No pain. No significant abnormal bleeding. MUSCULOSKELETAL: No musculoskeletal pain; no joint swelling. NEUROLOGICAL: No headache. No neck pain. No syncope. No seizures. No dizziness. PSYCHIATRIC: Not anxious. No depression. No suicidal thoughts. No homicidal thoughts. SKIN: No rash. No lesions. No wounds. ENDOCRINE: No unexplained weight loss. No weight gain. HEMATOLOGIC/LYMPHATIC: No anemia. No purpura. No petechiae. No prolonged or excessive bleeding. No palpable lymph nodes. PHYSICAL EXAMINATION: GENERAL: The patient seems to be oriented to person but confused about the date , time. The daughter is in the room. VITAL SIGNS: Temperature 97.5, pulse 70/min, respiratory rate 19, BP 110/68, pulse ox 97%. HEENT: Head normocephalic, atraumatic. Eyes: Extraocular muscles are intact. Pupils are equal, round and reactive to light and accommodation. Ears: No lesions. Nose appeared normal. Throat: No exudate or erythema. NECK: Supple. No JVD, no carotid bruit. No lymphadenopathy or thyromegaly. LUNGS: Decreased breath sounds. Clear to auscultation. Percussion note normal. Chest symmetrical. HEART: S1, S2, no S3. No murmurs. No cyanosis or clubbing. No ascites. Pulses: Dorsalis pedis and posterior tibial pulses +1 to +2 both sides. ABDOMEN: Soft. Nontender. Bowel sounds active. No CVA tenderness. No mass felt. EXTREMITIES: No edema. Full range of motion of all extremities, equal. NEUROLOGIC: No focal deficit. Cranial nerves II through XII are grossly intact. No headache, no double vision or headache. SKIN: Not dry. Intact. Turgor - normal. LYMPHATIC: No palpable lymph nodes/no lymphedema. MUSCULOSKELETAL: Normal joints with no swelling. Muscle tone is normal. ASSESSMENT: 1. ACUTE PNEUMONITIS/BRONCHITIS 2. BRONCHIAL ASTHMA 3. ATRIAL FIBRILLATION, NEW ONSET. CHADS2 - WILL START PATIENT ON LOVENOX. LATER ON WILL DECIDE ABOUT THE PERMANENT ANTICOAGULATION. 4. OTHER DIAGNOSES ARE STABLE LIKE HYPERTENSION, DEMENTIA, DEPRESSION, HYPOTHYROIDISM. The patient had an echo done which showed markedly enlarged LA cavity which is approximately more than 5 cm. Normal LV contractility with LVH. Normal valves with possibility of mitral valve prolapse with maybe trace mitral regurgitation. CONDITION: Stable TIME SPENT: More than 30 minutes. Plan and coordination of the patient's care discussed in the presence of nurse. MARIA LUISA
[2016-12-29] MEDS: RISPERDAL PO SCH (09:45)
[2016-12-29] MEDS: PRAVACHOL PO SCH (09:45)
[2016-12-29] MEDS: NAMENDA PO SCH (09:45)
[2016-12-29] MEDS: ARICEPT PO SCH (09:45)
[2016-12-29] MEDS: CELEXA PO SCH (09:45)
[2016-12-29] MEDS: BALANCED B-100 PO SCH (09:46)
[2016-12-29] MEDS: LOVENOX SUBCUT SCH (09:46)
--- NOTE | 2016-12-29 11:22 | PN ---
DATE OF SERVICE: 12/29/16 SUBJECTIVE: 76-year-old white female hospitalized with acute respiratory failure, hypoxemia. The patient is doing well, she has improved alot. There are no symptoms of bronchitis. She is oriented to place and person. As usual, the patient for the past two nights had confusion, abnormal behavior, responded some to Risperdal and Haldol. REVIEW OF SYSTEMS: CONSTITUTIONAL: No night sweats. No fatigue, malaise, lethargy. No fever or chills. HEENT: Eyes: No visual changes. No eye pain. No eye discharge. ENT: No runny nose. No epistaxis. No sinus pain. No sore throat. No odynophagia. No congestion. RESPIRATORY: No cough, no congestion. No hemoptysis. CARDIOVASCULAR: No angina symptoms. No CHF symptoms. No atypical chest pain for CAD. No palpitations. No shortness of breath. GASTROINTESTINAL: No abdominal pain. No nausea or vomiting. No diarrhea or constipation. No hematemesis. No hematochezia. GENITOURINARY: No urgency. No frequency. No dysuria. No hematuria. No obstructive symptoms. No discharge. No pain. No significant abnormal bleeding. MUSCULOSKELETAL: No musculoskeletal pain; no joint swelling. NEUROLOGICAL: No headache. No neck pain. No syncope. No seizures. No dizziness. PSYCHIATRIC: Not anxious. No depression. No suicidal thoughts. No homicidal thoughts. SKIN: No rash. No lesions. No wounds. ENDOCRINE: No unexplained weight loss. No weight gain. HEMATOLOGIC/LYMPHATIC: No anemia. No purpura. No petechiae. No prolonged or excessive bleeding. No palpable lymph nodes. PHYSICAL EXAMINATION: GENERAL: The patient is oriented to place and person sitting in the chair, in no distress. VITAL SIGNS: Temperature 97.4, pulse 76, respiratory rate 20, BP 140/88. Pulse ox 94% on room air. HEENT: Head normocephalic, atraumatic. Eyes: Extraocular muscles are intact. Pupils are equal, round and reactive to light and accommodation. Ears: No lesions. Nose appeared normal. Throat: No exudate or erythema. NECK: Supple. No JVD, no carotid bruit. No lymphadenopathy or thyromegaly. LUNGS: Clear to auscultation. Percussion note normal. Chest symmetrical. HEART: S1, S2, no S3. No murmurs. No cyanosis or clubbing. No ascites. Pulses: Dorsalis pedis and posterior tibial pulses +1 to +2 both sides. ABDOMEN: Soft. Nontender. Bowel sounds active. No CVA tenderness. No mass felt. EXTREMITIES: No edema. Full range of motion of all extremities, equal. NEUROLOGIC: No focal deficit. Cranial nerves II through XII are grossly intact. No headache, no double vision or headache. SKIN: Not dry. Intact. Turgor - normal. LYMPHATIC: No palpable lymph nodes/no lymphedema. MUSCULOSKELETAL: Normal joints with no swelling. Muscle tone is normal. LABS: Hemoglobin 13.3, hematocrit 38, WBC 6,800, normal differential. Creatinine 0.7, BUN 16, potassium 3.6. ASSESSMENT: 1. ACUTE RESPIRATORY FAILURE RESOLVED 2. BRONCHITIS RESOLVED 3. CHRONIC LUNG DISEASE 4. DEMENTIA The family and the daughters are aware of the fact that the patient has dementia off and on. Change of place, hospital psychosis has caused worsening of dementia especially in the evening hours. The family is advised to have someone at home with her all the time. Dementia is early. She is functional. She is up and about. CONDITION: Stable. TIME SPENT: More than 30 minutes. Plan and coordination of the patient's care discussed in the presence of nurse. MARIA LUISA
--- NOTE | 2016-12-29 12:11 | CM.DICTOOL ---
ADMISSION: 12/26/16 21:43 DISCHARGE: 12/29/16 DATE OF SERVICE: 12/29/16 FINAL DIAGNOSIS BRONCHITIS/CHRONIC LUNG DISEASE HYPOXEMIA DEMENTIA A-FIB HYPERTENSION HYPOTHYROIDISM DYSLIPIDEMIA DEPRESSION/ANXIETY CURRENT EVERY DAY SMOKER OCCASIONAL ETOH HYSTERECTOMY RIGHT KNEE ARTHROPLASTY LAST VITALS Temp Pulse Resp BP Pulse Ox 97.4 F L 76 20 140/88 94 L 12/29/16 05:55 12/29/16 05:55 12/29/16 05:55 12/29/16 05:55 12/29/16 05:55 ACTIVE MEDICATIONS Aspirin (Aspirin Ec) 81 mg PO [facility] Last Admin: 12/29/16 08:30 Dose: 81 mg Carvedilol (Coreg) 6.25 mg PO BIDWM [facility] Last Admin: 12/29/16 08:31 Dose: 6.25 mg Citalopram Hydrobromide (Celexa) 20 mg PO DAILY [facility] Last Admin: 12/29/16 09:45 Dose: 20 mg Donepezil HCl (Aricept) 10 mg PO DAILY [facility] Last Admin: 12/29/16 09:45 Dose: 10 mg Levothyroxine Sodium (Synthroid) 50 mcg PO QDAC [facility] Last Admin: 12/29/16 05:56 Dose: 50 mcg Memantine (Namenda) 10 mg PO BID [facility] (INCREASED FROM 10 MG PO DAILY) Last Admin: 12/29/16 09:45 Dose: 10 mg Pravastatin Sodium (Pravachol) 40 mg PO DAILY [facility] Last Admin: 12/29/16 09:45 Dose: 40 mg Vitamin B Complex (Balanced B-100) 1 tab PO DAILY [facility] Last Admin: 12/29/16 09:46 Dose: 1 tab ALLERGIES codiene Allergy (Uncoded 12/26/16 19:38) tetanus shot Allergy (Uncoded 12/26/16 19:38) NEW PRESCRIPTIONS: PLEASE NOTE THE INCREASE IN YOUR MEMANTINE HCL (NAMENDA) TO 10 MG BY MOUTH TWICE DAILY KEFLEX 500 MG, TAKE ONE CAPSULE BY MOUTH EVERY 8 HOURS FOR 7 DAYS PREDNISONE 10 MG, TAKE ONE TABLET BY MOUTH DAILY WITH FOOD FOR 7 DAYS SMOKING: DISCUSSED SMOKING CESSATION AND THE BENEFITS OF COMPLETE CESSATION THE PATIENT HAS NOT MADE A VERBAL COMMITMENT FOR CESSATION OR DECREASING THE AMOUNT SHE SMOKES. SHE DID NOT SMOKE DURING THE HOSPITAL STAY. DISEASE SPECIFIC EDUCATION: ATRIAL FIBRILLATION BRONCHITIS HYPOXEMIA FOLLOW UP HOME MEDICATIONS NEW PRESCRIPTIONS STEROID USE INCLUDING BENEFITS VS RISKS SUCH POSSIBLE BONE DEMINERALIZATION AND CATARACTS LAB REVIEW: 12/29/16 05:30 12/29/16 05:30 12/29/16 05:30: WBC 6.87, RBC 4.00 L, Hgb 13.3, Hct 38.5, MCV 96.3, MCH 33.3 H, MCHC 34.5, RDW Coeff of Kev 11.9, Plt Count 193, Immature Gran % (Auto) 0.3, Neut % (Auto) 84.4, Lymph % (Auto) 12.8, Jerome % (Auto) 2.5, Eos % (Auto) 0.0, Baso % (Auto) 0.0, Immature Gran # (Auto) 0.0, Neut # 5.8, Lymph # 0.9, Jerome # 0.2 L, Eos # 0.0, Baso # 0.0, Sodium 141, Potassium 3.6, Chloride 108 H, Carbon Dioxide 27, Anion Gap 9.6, BUN 16, Creatinine 0.78, Estimated GFR (MDRD) 72.00, BUN/Creatinine Ratio 20.51, Glucose 154 H, Calcium 8.8 PLAN: DISCHARGE HOME TODAY RETURN TO SEE DR. ZUNIGA IN 5-7 DAYS. PLEASE PHONE THE OFFICE TO SCHEDULE YOUR FOLLOW UP APPOINTMENT ([phone]) RESUME YOUR HOME MEDICATIONS PER LIST PROVIDED BY THE NURSING STAFF PLEASE NOTE THE INCREASE IN YOUR MEMANTINE HCL (NAMENDA) TO 10 MG BY MOUTH TWICE DAILY NEW PRESCRIPTIONS: KEFLEX 500 MG, TAKE ONE CAPSULE BY MOUTH EVERY 8 HOURS FOR 7 DAYS PREDNISONE 10 MG, TAKE ONE TABLET BY MOUTH DAILY WITH FOOD FOR 7 DAYS ACTIVITY: GET PLENTY OF REST AT HOME. GRADUALLY INCREASE YOUR ACTIVITY LEVEL ACCORDING TO YOUR TOLERATION DIET: TOLERATED SUMMARY: THE PATIENT IS ALERT AND ORIENTED TO PERSON ONLY. FOR THE PAST TWO DAYS SHE HAS REQUIRED CLOSE OBSERVATION FOR SAFETY REASONS. SHE HAS BECOME AGITATED AND ANXIOUS. WE HAVE INCREASED HER NAMENDA DURING THIS TIME. TODAY SHE IS MORE CALM. MS. BERMEO CURRENTLY RESIDES AT HOME ALONE. HER BROTHER AND GRAND-DAUGHTER HAVE BEEN PROVIDING CARE FOR HER NEEDED. WITH THE CHANGE IN HER ORIENTATION, SHE WILL REQUIRE SOMEONE TO PROVIDE CARE 12/02. WE HAVE DISCUSSED THIS WITH THE FAMILY. THEY HAVE DECLINED A DISCHARGE OPTION FOR DETENTION PLACEMENT IN FAVOR OF RETURNING HOME WITH THE GRAND-DAUGHTER WILLING TO STAY WITH HER LONG NECESSARY. THEY DECLINED CASE MANAGEMENT OFFER FOR REFERRAL FOR [facility]. MS. BERMEO'S SKIN TURGOR IS INTACT. THERE ARE NO DECUBITUS ULCERS PRESENT ON DISCHARGE. HER LABS HAVE IMPROVED HAS HER RESPIRATORY STATUS. SHE IS AFEBRILE AND WILL NOT REQUIRE HOME OXYGEN AT DISCHARGE. HER SATS REMAIN IN THE MID TO UPPER 90%'s. THE FAMILY AND PATIENT ARE AWARE OF TODAY'S DISCHARGE PLANS AND ARE AGREEABLE. MS. BERMEO REMAINS A FULL CODE AT DISCHARGE. MARKEL ZUNIGA M.D.
[2016-12-29 13:04] VITALS: BP 127/75; TEMP 96.8
--- NOTE | 2016-12-29 13:24 | DS ---
DATE OF SERVICE: 12/29/16 FINAL DIAGNOSIS: 1. BRONCHITIS/CHRONIC LUNG DISEASE 2. HYPOXEMIA 3. DEMENTIA 4. ATRIAL FIBRILLATION 5. HYPERTENSION 6. HYPOTHYROIDISM 7. DYSLIPIDEMIA 8. DEPRESSION/ANXIETY 9. CURRENT EVERY DAY SMOKER 10. OCCASIONAL ETOH 11. HYSTERECTOMY 12. RIGHT KNEE ARTHROPLASTY LAST V/S: Temperature 97.4, pulse 76, respiratory rate 20, blood pressure 140/88, pulse ox 94. DISCHARGE INSTRUCTIONS: Followup appointment: Return to see Dr. Conti in 5 to 7 days. Please call to schedule appointment. MEDICATIONS AT DISCHARGE: 1. Citalopram 20 mg p.o. daily 2. Aspirin 81 mg p.o. bedtime 3. Vitamin B Complex one each p.o. daily 4. Levothyroxine 50 mcg p.o. daily 5. Carvedilol 6.25 mg p.o. b.i.d. 6. Pravastatin 40 mg p.o. bedtime 7. Donepezil 10 mg p.o. bedtime NEW PRESCRIPTIONS: 1. Memantine (Namenda) 10 mg p.o. b.i.d. 2. Prednisone 10 mg p.o. daily with meal 3. Cephalexin 500 mg p.o. q.8hr DIET INSTRUCTIONS: As tolerated. ACTIVITY: Get plenty of rest at home. Gradually increase your activity level according to your toleration. SMOKING: Discussed smoking cessation and the benefits of complete cessation. The patient has not made a verbal committment for cessation or decreasing the amount she smokes. She did not smoke during the hospital stay. DISEASE SPECIFIC EDUCATION: Atrial fibrillation Bronchitis Hypoxemia Follow up Home medications New prescriptions Steroid use including benefits versus risks such as possible bone demineralization and cataracts HOSPITAL COURSE: This 76-year-old white female hospitalized with acute respiratory failure, acute bronchitis. The patient was treated with IV Rocephin and Zithromax, steroids and nebs treatment. The patient's condition improved. Oxygen saturation on room air was 94%. She was up and about. Her appetite improved. Lungs were clear to auscultation. WBC count on discharge was 6,800. The patient had some confusion with abnormal behavior in the evening time with a change in place. The patient has been on Namenda and Aricept. She is advised to continue that. She was discharged in stable condition to be followed as an outpatient. CONDITION AT TIME OF DISCHARGE: Stable. The patient was discharged on steroids and antibiotics and is to be seen back in 7 days. TIME SPENT: More than 60 minutes. MARIA LUISA
== END 2016-12-29 13:45 | disposition home or self-care (01) | DRG 202 ==
LOC: ED 19:28 → MEDSURG B 21:43
PROVIDERS: ADMIT Internal Medicine; ATTEND Internal Medicine
DX: J20.8 Acute bronchitis due to other specified organisms (principal); J96.01 Acute respiratory failure with hypoxia; J44.0 Chronic obstructive pulmonary disease with (acute) lower respiratory infection; F05 Delirium due to known physiological condition; I48.91 Unspecified atrial fibrillation; I51.7 Cardiomegaly; I34.1 Nonrheumatic mitral (valve) prolapse; R50.9 Fever, unspecified; R53.1 Weakness; F03.90 Unspecified dementia, unspecified severity, without behavioral disturbance, psychotic disturbance, mood disturbance, and anxiety; I10 Essential (primary) hypertension; E03.9 Hypothyroidism, unspecified; E78.5 Hyperlipidemia, unspecified; F41.8 Other specified anxiety disorders; F17.200 Nicotine dependence, unspecified, uncomplicated; Z79.899 Other long term (current) drug therapy; Z79.82 Long term (current) use of aspirin; Z87.09 Personal history of other diseases of the respiratory system; Z72.89 Other problems related to lifestyle
CPT/HCPCS: 36415; 80048; 80053; 81001; 82803; 83605; 84145; 85025; 87040; 93005; 93010; 94640; 96365; 96366; 96372; 96375; 99285

== ENCOUNTER 2017-03-04 19:50 | Outpatient (CLI) | END 2017-03-04 19:51 | LOC: AMBL 19:50 | PROVIDERS: ATTEND Family Medicine | DX: Z04.3 Encounter for examination and observation following other accident (principal); W19.XXXA Unspecified fall, initial encounter ==

== ENCOUNTER 2018-01-16 18:45 | Outpatient (CLI) | END 2018-01-16 18:46 | disposition short-term general hospital (02) | LOC: AMBL 18:45 | PROVIDERS: ATTEND Internal Medicine | DX: R55 Syncope and collapse (principal) ==

== ENCOUNTER 2018-07-18 20:55 | Emergency (ER) ==
[2018-07-18 20:56] VITALS: BMI 26.6
[2018-07-18 21:03] VITALS: BP 134/85; TEMP 102.6
--- NOTE | 2018-07-18 21:17 | ED.PDOC ---
General ED Provider: Dr. MADDISON MATHIS MD Chief Complaint: Shortness of Air Stated Complaint: fever, not feeling good Time Seen by Physician: 21:15 Mode of Arrival: Wheelchair Information Source: Patient Exam Limitations: No limitations Primary Care Provider: MARKEL ZUNIGA Nursing and Triage Documentation Reviewed and Agree: Yes Does patient meet sepsis criteria?: Yes If yes, has appropriate treatment been initiated?: Yes (will r/o infection) System Inflammatory Response Syndrome: Temp 101F or Greater Sepsis Protocol: For patient's 13 years and over: Temp is 96.8 and below OR 101 and greater Pulse >90 BPM Resp >20/minute Acutely Altered Mental Status Are patient's symptoms suggestive of a new infection, such as: -Pneumonia -Skin, Soft Tissue -Endocarditis -UTI -Bone, Joint Infection -Implantable Device -Acute Abdominal Infection -Wound Infection -Meningitis -Blood Stream Catheter Infection -Unknown Miscellaneous Complaint Exam - Febrile Illness/Adult Complaint/Exam Symptoms Are: Still present Episodes Lasting: Hours Initial Severity: Mild Current Severity: Mild Aggravating: Reports: None Alleviating: Reports: None Associated Signs and Symptoms: Reports: Cough Pseudomonas Risk Factors: Reports: None Serious Bacterial Infection Risk Factors: Reports: None Review of Systems - Review Of Systems Constitutional: Reports: Fever Ears, Nose, Mouth, Throat: Reports: No symptoms Respiratory: Reports: Short of air Cardiac: Reports: No symptoms GI: Reports: No symptoms : Reports: No symptoms Musculoskeletal: Reports: No symptoms Skin: Reports: No symptoms Neurological: Reports: No symptoms Endocrine: Reports: No symptoms Hematologic/Lymphatic: Reports: No symptoms All Other Systems: Reviewed and Negative Past Medical History - Past Medical History Previously Healthy: Yes Endocrine: Reports: Hypothyroid, Dyslipidemia Cardiovascular: Reports: None Respiratory: Reports: None Hematological: Reports: None Gastrointestinal: Reports: None Genitourinary: Reports: None Neuro/Psych: Reports: Depression, Dementia Musculoskeletal: Reports: None Cancer: Reports: None Last Menstrual Period: hysterectomy - Surgical History General Surgical History: Reports: Hysterectomy, Orthopedic (Right Knee Replacement ) - Family History Family History: Reports: Unknown - Social History Smoking Status: Never smoker Hx Substance Use: No Alcohol Screening: Occasionally - Immunizations Tetanus Shot up to Date: Yes (unsure) Physical Exam - Physical Exam Appearance: Ill-appearing Ill-appearing: Mild Eyes: CARMEN, EOMI, Conjunctiva clear ENT: Ears normal, Nose normal, Oropharynx normal Neck: Supple Respiratory: Airway patent Cardiovascular: RRR, Pulses normal, No rub, No murmur GI/: Soft Musculoskeletal: Normal strength Skin: Warm Neurological: Sensation intact, Motor intact, Reflexes intact, Cranial nerves intact, Alert, Oriented Psychiatric: Affect appropriate, Mood appropriate Critical Care Note - Critical Care Note Total Time (mins): 0 Course - Course Hematology/Chemistry: 07/18/18 21:35 07/18/18 21:35 Orders, Labs, Meds: Lab Review 07/18/18 07/18/18 21:35 21:35 WBC 3.56 L RBC 4.19 L Hgb 14.2 Hct 42.2 MCV 100.7 H MCH 33.9 H MCHC 33.6 RDW Coeff of Kev 12.6 Plt Count 174 Immature Gran % (Auto) 0.3 Neut % (Auto) 65.3 Lymph % (Auto) 22.5 Beauregard % (Auto) 11.0 H Eos % (Auto) 0.3 Baso % (Auto) 0.6 Immature Gran # (Auto) 0.0 Neut # (Auto) 2.3 Lymph # (Auto) 0.8 Beauregard # (Auto) 0.4 Eos # (Auto) 0.0 Baso # (Auto) 0.0 Sodium 132.4 L Potassium 3.84 Chloride 98.5 Carbon Dioxide 24.8 Anion Gap 12.94 BUN 15.5 Creatinine 0.69 Estimated GFR (MDRD) 82.00 BUN/Creatinine Ratio 22.46 Glucose 133.5 H Calcium 9.11 Orders Category Date Time Status BLOOD CULTURE (ED ONLY) Stat LAB 07/18/18 21:35 Received BMP [BASIC METABOLIC PANEL] Stat LAB 07/18/18 21:35 Completed CBC W/ AUTO DIFF Stat LAB 07/18/18 21:35 Completed UA [URINALYSIS C & S IF INDICATED] Stat LAB 07/18/18 21:20 Uncollected Methylprednisolone Sod Succ/Pf [Solu-Medrol 125 mg] MEDS 07/18/18 22:38 Discontinued 125 mg IM ONCE STA CXR [CHEST, 2 VIEWS PA & LAT] Stat RADS 07/18/18 21:19 Completed Medications Discontinued Medications Generic Name Dose Route Start Last Admin Trade Name Freq PRN Reason Stop Dose Admin Methylprednisolone Sodium Succinate 125 mg 07/18/18 22:38 07/18/18 22:45 Solu-Medrol 125 Mg IM 07/18/18 22:39 125 mg ONCE STA Administration Vital Signs: Temp Pulse Resp BP Pulse Ox 07/18/18 20:56 102.6 F H 98 H 22 134/85 93 L Departure - Departure Time of Disposition: 23:33 Disposition: HOME SELF-CARE Discharge Problem: Tracheobronchitis Instructions: Acute Bronchitis (ED) Condition: Stable Pt referred to PMD for follow-up: Yes IPMP verified?: No Additional Instructions: Follow up with your PCP Prescriptions: Prednisone 20 mg PO DAILYWM 5 Days #5 tablet NS Allergies/Adverse Reactions: Allergies codiene Allergy (Uncoded 07/18/18 21:03) tetanus shot Allergy (Uncoded 07/18/18 21:03) Home Medications: Ambulatory Orders Aspirin [Aspir 81] 81 mg PO BEDTIME 10/28/15 Carvedilol 6.25 mg PO BID 10/28/15 Citalopram Hydrobromide [Celexa] 20 mg PO DAILY 10/28/15 Donepezil HCl 10 mg PO BEDTIME 10/28/15 Levothyroxine Sodium 50 mcg PO DAILY 10/28/15 Pravastatin Sodium 40 mg PO BEDTIME 10/28/15 Vitamin B Complex 1 each PO DAILY 10/28/15 Memantine HCl [Namenda] 10 mg PO BID #60 tablet 12/29/16 Prednisone 20 mg PO DAILYWM 5 Days #5 tablet NS 07/18/18 Rivaroxaban [Xarelto] 10 mg PO DAILY 07/18/18
--- NOTE | 2018-07-18 22:25 | DI ---
EXAM: PA and lateral views of the chest. HISTORY: Shortness of breath. Fever. FINDINGS: The bones are unremarkable. The cardiac silhouette and pulmonary vasculature are within no rmal limits. The costophrenic angles are clear. No infiltrate or consolidation. There are calcifie d granulomas. Impression: No acute cardiopulmonary disease.
[2018-07-18] MEDS ORDERED: SOLU-MEDROL 125 MG IM STA (22:38)
== END 2018-07-18 23:30 | disposition home or self-care (01) ==
LOC: ED 20:55
DX: J40 Bronchitis, not specified as acute or chronic (principal); R06.02 Shortness of breath; E78.5 Hyperlipidemia, unspecified; E03.9 Hypothyroidism, unspecified; Z79.899 Other long term (current) drug therapy
CPT/HCPCS: 36415; 80048; 85025; 87040; 96372; 99283

== ENCOUNTER 2018-07-19 15:45 | Inpatient (IN) ==
[2018-07-19] MEDS ORDERED: VISTARIL INJ IM PRN (16:19)
[2018-07-19] MEDS ORDERED: NITROSTAT SL PRN (16:19)
[2018-07-19] MEDS ORDERED: ATROPINE SULFATE PFS IVP PRN (16:19)
[2018-07-19] MEDS ORDERED: TYLENOL PO PRN (16:19)
[2018-07-19] MEDS ORDERED: ATIVAN PO PRN (16:23)
[2018-07-19] MEDS: ZITHROMAX PO SCH (17:09)
[2018-07-19] MEDS: ROCEPHIN 1 GM in SODIUM CHLORIDE 50 ML IV SCH (17:09)
[2018-07-19] MEDS: SOLU-CORTEF 250 MG IVP SCH ×2 (17:10→21:33)
[2018-07-19] MEDS: SODIUM CHLORIDE 1,000 ML IV SCH (17:11)
[2018-07-19 20:08] VITALS: BMI 28.0
[2018-07-19] MEDS: XOPENEX 1.25 MG NEB SCH (20:43)
[2018-07-19] MEDS ORDERED: COREG PO SCH (21:00)
[2018-07-19] MEDS: PRAVACHOL PO SCH (21:33)
[2018-07-19] MEDS: NAMENDA PO SCH (21:33)
[2018-07-19] MEDS: ARICEPT PO SCH (21:34)
[2018-07-19] MEDS ORDERED: CALMOSEPTINE OINTMENT TP SCH (22:00)
[2018-07-20] MEDS: XOPENEX 1.25 MG NEB SCH ×3 (04:40→21:15)
[2018-07-20] MEDS: SODIUM CHLORIDE 1,000 ML IV SCH (05:19)
[2018-07-20] MEDS: SOLU-CORTEF 250 MG IVP SCH ×3 (05:45→20:21)
[2018-07-20] MEDS ORDERED: ASPIRIN EC PO SCH (08:00)
[2018-07-20] MEDS: CALMOSEPTINE OINTMENT TP SCH ×2 (09:03→20:32)
[2018-07-20] MEDS: ROCEPHIN 1 GM in SODIUM CHLORIDE 50 ML IV SCH (09:03)
[2018-07-20] MEDS: SYNTHROID PO SCH (09:03)
[2018-07-20] MEDS: CELEXA PO SCH (09:04)
[2018-07-20] MEDS: COREG PO SCH ×2 (09:04→17:28)
[2018-07-20] MEDS: NAMENDA PO SCH ×2 (09:04→20:30)
[2018-07-20] MEDS: ASPIRIN EC PO SCH (09:04)
[2018-07-20] MEDS: ZITHROMAX PO SCH (09:04)
[2018-07-20] MEDS: HALDOL IM PRN ×2 (13:13→22:52)
[2018-07-20] MEDS ORDERED: XARELTO ONE (17:20)
[2018-07-20] MEDS ORDERED: XARELTO PO SCH (17:30)
[2018-07-20] MEDS ORDERED: NON-FORMULARY MEDICATION (Rivaroxaban [Xarelto] 20 MG) PO SCH (17:30)
[2018-07-20] MEDS: ARICEPT PO SCH (20:30)
[2018-07-20] MEDS: PRAVACHOL PO SCH (20:31)
[2018-07-20 21:36] VITALS: BP 125/84; TEMP 97.7
[2018-07-21] MEDS ORDERED: HALDOL IM STA (01:24)
[2018-07-21] MEDS: HALDOL IM PRN (01:30)
[2018-07-21] MEDS: XOPENEX 1.25 MG NEB SCH (04:50)
[2018-07-21] MEDS: SOLU-CORTEF 250 MG IVP SCH (05:59)
[2018-07-21] MEDS: SYNTHROID PO SCH (06:00)
[2018-07-21] MEDS: ZITHROMAX PO SCH (09:29)
[2018-07-21] MEDS: ROCEPHIN 1 GM in SODIUM CHLORIDE 50 ML IV SCH (09:29)
[2018-07-21] MEDS: CALMOSEPTINE OINTMENT TP SCH (09:30)
[2018-07-21] MEDS: ASPIRIN EC PO SCH (09:30)
[2018-07-21] MEDS: CELEXA PO SCH (09:30)
[2018-07-21] MEDS: NAMENDA PO SCH (09:30)
[2018-07-21] MEDS: COREG PO SCH (09:30)
[2018-07-21] MEDS: SODIUM CHLORIDE 1,000 ML IV SCH ×2 (09:53→09:54)
--- NOTE | 2018-07-24 14:54 | PN ---
DATE OF SERVICE: 07/19/18 SUBJECTIVE: The patient was seen and examined with Nurse Practitioner. She is going to be admitted. She was seen in the emergency room with fever of 102 and 11% [place]. She seems to be dehydrated with dry skin. PHYSICAL EXAMINATION: GENERAL: The patient is , lying/sitting in bed in no distress. VITAL SIGNS: HEENT: Head normocephalic, atraumatic. Eyes: Extraocular muscles are intact. Pupils are equal, round and reactive to light and accommodation. Ears: No lesions. Nose appeared normal. Throat: No exudate or erythema. NECK: Supple. No JVD, no carotid bruit. No lymphadenopathy or thyromegaly. LUNGS: Decreased breath sounds with mild wheeze. Cough and congestion. Clear to auscultation. Percussion note normal. Chest symmetrical. HEART: S1, S2, no S3. No murmurs. No cyanosis or clubbing. No ascites. Pulses: Dorsalis pedis and posterior tibial pulses +1 to +2 both sides. ABDOMEN: Soft. Nontender. Bowel sounds active. No CVA tenderness. No mass felt. EXTREMITIES: No edema. Full range of motion of all extremities, equal. NEUROLOGIC: No focal deficit. Cranial nerves II through XII are grossly intact. No headache, no double vision or headache. SKIN: Not dry. Intact. Turgor - normal. LYMPHATIC: No palpable lymph nodes/no lymphedema. MUSCULOSKELETAL: Normal joints with no swelling. Muscle tone is normal. PLAN: 1. She will be treated with IV antibiotics/ Steroids and NEBS 2. IV therapy with fluids. CONDITION: Stable. TIME SPENT: More than 30 minutes. Plan and coordination of the patient's care discussed in the presence of nurse. MARIA LUISA
--- NOTE | 2018-07-26 10:33 | ECHO2D ---
Date of Exam: 07/21/18 Ordering Physician: DR. MARKEL ZUNIGA Room #: [id number] Reason for Echo: ATRIAL FIBRILLATION, SOA M-Mode Normal Adult Results LV Dimensions Normal Adult Results AoV Opening excursions >1.6 >1.6 LVEDD-base- 3.5-5.8 4.7 Ao root dimensions 2.0-3.7 3.0 LVESD-base- 3.1-4.6 L. Atrium dimensions 1.9-3.8 5.3 Post. Wall thickness 0.8-1.1 1.2 IV septum (thickness) 0.7-1.2 1.1 Post. Wall excursion 0.72-1.3 NORMAL Septal motion NORMAL Systolic motion R. Ventricular cavity 1.5-2.0 NORMAL LVEF 60% 56% Paradoxical septal wall motion NORMAL 2-D : 2-D M Mode Echocardiogram was performed using apical four chamber and left parasternal long and short axis views. Mitral, tricuspid and aortic valves appear to be normal. Contractility of the left ventricle seems to be normal, so is the cavity size. Enlarged Left atrial cavity size. Aortic root appears to be normal. There is no pericardial effusion. There is no thrombus noted in the left ventricular or left aortic cavity. No mitral valve prolapse noted. M-MODE: MV: NORMAL AV: NORMAL TV: NORMAL PV: CHAMBER SIZE: ENLARGED LEFT ATRIAL CAVITY WALL MOTION: NORMAL PERICARDIUM: NORMAL INTERPRETATION: 1. BORDERLINE LEFT VENTRICULAR HYPERTROPHY 2. ENLARGED LEFT ATRIAL CAVITY (5.3 CM) 3. NORMAL LEFT VENTRICULAR CONTRACTILITY 4. NORMAL VALVES MTDD
--- NOTE | 2018-07-29 09:35 | PN ---
DATE OF SERVICE: 07/21/18 SUBJECTIVE: 77 year old white female hospitalized with acute pneumonitis. The patient is feeling a lot better, her appetite has improved. She wants to go home and the family also wants her to go home. The patient has been having some spell of confusion, dementia and was being treated by Haldol and Ativan. Last night she slept well and this morning she looks stable. Brother is in the room. REVIEW OF SYSTEMS: CONSTITUTIONAL: No night sweats. No fatigue, malaise, lethargy. No fever or chills. HEENT: Eyes: No visual changes. No eye pain. No eye discharge. ENT: No runny nose. No epistaxis. No sinus pain. No sore throat. No odynophagia. No congestion. RESPIRATORY: No cough, no congestion. No hemoptysis. No shortness of breath. CARDIOVASCULAR: No angina symptoms. No CHF symptoms. No atypical chest pain for CAD. No palpitations. No orthopnea. GASTROINTESTINAL: No abdominal pain. No nausea or vomiting. No diarrhea or constipation. No hematemesis. No hematochezia. GENITOURINARY: No urgency. No frequency. No dysuria. No hematuria. No obstructive symptoms. No discharge. No pain. No significant abnormal bleeding. MUSCULOSKELETAL: No musculoskeletal pain; no joint swelling. NEUROLOGICAL: No headache. No neck pain. No syncope. No seizures. No dizziness. PSYCHIATRIC: Not anxious. No depression. No suicidal thoughts. No homicidal thoughts. SKIN: No rash. No lesions. No wounds. ENDOCRINE: No unexplained weight loss. No weight gain. HEMATOLOGIC/LYMPHATIC: No anemia. No purpura. No petechiae. No prolonged or excessive bleeding. No palpable lymph nodes. PHYSICAL EXAMINATION: VITAL SIGNS: Temperature 97.7, pulse 62, respiratory rate 24, blood pressure 124/84 and pulse ox 96%. HEENT: Head normocephalic, atraumatic. Eyes: Extraocular muscles are intact. Pupils are equal, round and reactive to light and accommodation. Ears: No lesions. Nose appeared normal. Throat: No exudate or erythema. NECK: Supple. No JVD, no carotid bruit. No lymphadenopathy or thyromegaly. LUNGS: Decreased breath sounds but clear to auscultation. Percussion note normal. Chest symmetrical. HEART: S1, S2, no S3. No murmurs. No cyanosis or clubbing. No ascites. Pulses: Dorsalis pedis and posterior tibial pulses +1 to +2 both sides. ABDOMEN: Soft. Nontender. Bowel sounds active. No CVA tenderness. No mass felt. EXTREMITIES: No edema. Full range of motion of all extremities, equal. NEUROLOGIC: No focal deficit. Cranial nerves II through XII are grossly intact. No headache, no double vision or headache. SKIN: Not dry. Intact. Turgor - normal. LYMPHATIC: No palpable lymph nodes/no lymphedema. MUSCULOSKELETAL: Normal joints with no swelling. Muscle tone is normal. ASSESSMENT: 1. Acute pneumonitis, resolving viral 2. Chronic lung disease 3. Hypertension 3. Dementia 4. DJD of the spine PLAN: 1. Continue same antibiotics but will change it to PO 2. Omnicef 500mg twice a day 3. Prednisone to be given 20mg daily for 5 days 4. Advised to continue Aspirin, Carvedilol, Celexa, Aricept, Levothyroxine, Pravastatin, Namenda and Xarelto 5. The patient's condition is stable and her echocardiogram was performed which showed ejection fraction of 55%. Normal LV size, LA cavity is enlarged more than 5cm. Valvular structures are normal. 6. The patient will be discharged home. TIME SPENT: More than 30 minutes. Plan and coordination of the patient's care discussed in the presence of nurse. MARIA LUISA
--- NOTE | 2018-07-29 10:07 | PN ---
DATE OF SERVICE: 07/20/18 SUBJECTIVE: 77 year old white female was hospitalized with acute pneumonitis and bronchitis likely viral now has turned into bacterial. The patient had high fever day before yesterday. She was seen in ER and sent home. The patient was hospitalized after being seen in the office yesterday. The patient says that she is feeling a lot better. The patient's brother is in the room. REVIEW OF SYSTEMS: CONSTITUTIONAL: No night sweats. Weak and fatigued. No fever or chills. HEENT: Eyes: No visual changes. No eye pain. No eye discharge. ENT: No runny nose. No epistaxis. No sinus pain. No sore throat. No odynophagia. No congestion. RESPIRATORY: Mild cough, no congestion. No hemoptysis. No shortness of breath. CARDIOVASCULAR: No angina symptoms. No CHF symptoms. No atypical chest pain for CAD. No palpitations. No orthopnea. GASTROINTESTINAL: No abdominal pain. No nausea or vomiting. No diarrhea or constipation. No hematemesis. No hematochezia. GENITOURINARY: No urgency. No frequency. No dysuria. No hematuria. No obstructive symptoms. No discharge. No pain. No significant abnormal bleeding. MUSCULOSKELETAL: No musculoskeletal pain; no joint swelling. NEUROLOGICAL: No headache. No neck pain. No syncope. No seizures. No dizziness. PSYCHIATRIC: Not anxious. No depression. No suicidal thoughts. No homicidal thoughts. SKIN: No rash. No lesions. No wounds. ENDOCRINE: No unexplained weight loss. No weight gain. HEMATOLOGIC/LYMPHATIC: No anemia. No purpura. No petechiae. No prolonged or excessive bleeding. No palpable lymph nodes. PHYSICAL EXAMINATION: GENERAL: The patient is confused but oriented to person. VITAL SIGNS: Temperature 97.6, pulse 58, respiratory rate 17, blood pressure 100/62 and pulse ox 94%. HEENT: Head normocephalic, atraumatic. Eyes: Extraocular muscles are intact. Pupils are equal, round and reactive to light and accommodation. Ears: No lesions. Nose appeared normal. Throat: No exudate or erythema. NECK: Supple. No JVD, no carotid bruit. No lymphadenopathy or thyromegaly. LUNGS: Decreased breath sounds with few wheeze. Clear to auscultation. Percussion note normal. Chest symmetrical. HEART: S1, S2, no S3. No murmurs. No cyanosis or clubbing. No ascites. Pulses: Dorsalis pedis and posterior tibial pulses +1 to +2 both sides. ABDOMEN: Soft. Nontender. Bowel sounds active. No CVA tenderness. No mass felt. EXTREMITIES: No edema. Full range of motion of all extremities, equal. NEUROLOGIC: No focal deficit. Cranial nerves II through XII are grossly intact. No headache, no double vision or headache. SKIN: Not dry. Intact. Turgor - normal. LYMPHATIC: No palpable lymph nodes/no lymphedema. MUSCULOSKELETAL: Normal joints with no swelling. Muscle tone is normal. LABS: Hgb 13.1, hct 38, WBC 5,700 normal differential, creatinine 0.7, BUN 18, potassium 3.4, glucose 161. ASSESSMENT: 1. Acute bronchitis/pneumonitis likely viral but now bacterial 2. COPD 3. Hypertension 4. Atrial fibrillation 5. Dementia PLAN: 1. Continue IV antibiotics, steroids and NEBS 2. Discontinue IV fluids 3. Discontinue Aspirin 4. Xarelto side effects including intracranial and stomach bleed discussed. The patient doesn't know her medication I asked about what medications she is taking and she was not able to name even one. 5. Will do BNP 6. Maybe an echocardiogram if not done in past 6 months to evaluate LV functions which could be contributing towards her shortness of breath and wheezing. CONDITION: Stable, improving TIME SPENT: More than 30 minutes. Plan and coordination of the patient's care discussed in the presence of nurse. MARIA LUISA
--- NOTE | 2018-07-29 11:57 | DS ---
DATE OF SERVICE: 07/21/18 FINAL DIAGNOSIS: 1. Acute pneumonitis/bronchitis, viral etiology 2. Hypertension 3. Atrial fibrillation 4. Dyslipidemia 5. Alzheimer's Disease DISCHARGE INSTRUCTIONS: Continue the rest of the medication as before. Advised rest, increase fluid and food intake. The patient is to see me back on Sunday morning, 04/21. Her brother is in the room and the daughter is coming. MEDICATIONS AT DISCHARGE: Celexa 20mg PO bedtime Aspirin 81mg PO QAM Vitamin B complex 1 each PO daily Levothyroxine 50mcg PO bedtime Carvedilol 6.25mg PO twice a day Pravastatin 40mg PO bedtime Donepezil HCL 10mg PO bedtime Namenda 10mg PO twice a day Xarelto 20mg PO 1730 NEW PRESCRIPTIONS: Omnicef 300mg twice a day for 7 days and Prednisone 20mg PO daily for 5 days. DIET INSTRUCTIONS: Increase fluid and food intake ACTIVITY: Get plenty of rest. Increase activity as tolerated. SMOKING: N/A DISEASE SPECIFIC EDUCATION: Medication Appointment. HOSPITAL COURSE: Ms. Rudd was hospitalized with fever and chills with dehydration, cough and congestion. The patient did not have any symptoms of CHF but she was shortness of breath on minimal exertion from bronchitis. The patient was seen in the emergency room prior to the hospitalization with 102 fever and let go home and she ended up in the office with the same problems. The patient was given IV Rocephin with IV steroids and NEBS treatment. Her condition improved. Her other problem is dementia. She had dementia with hospital psychosis with confusion which was treated with Haldol and Ativan. The patient's condition improved. At the time of discharge the patient was up and about feeling a lot better and her appetite had improved. She was oriented to place and person. She was discharged home in stable condition to be followed as an outpatient. TIME SPENT: More than 60 minutes. MARIA LUISA
--- NOTE | 2018-07-29 11:58 | PN ---
07/19/18: Level 5 07/20/18: Intermediate 07/21/18: D as in discharge MTDD
--- NOTE | 2018-08-20 13:28 | HP ---
DATE OF SERVICE: 07/19/18 HISTORY OF PRESENT ILLNESS: 77-year-old female who went to the emergency room at [facility] on 07/18 with 102.6 fever, coughing and shortness of breath. She was sent home with Prednisone, no antibiotics. She is more confused. She is not eating. PAST MEDICAL HISTORY: COPD Asthma Hypothyroidism Depression DARYN PSVT Alzheimer's dementia MVP/echo 01/06 Atrial fibrillation MENSTRUAL HISTORY: Hysterectomy PAST SURGICAL HISTORY: Colonoscopy Hysterectomy Right knee replacement Eye surgery REVIEW OF SYSTEMS: CONSTITUTIONAL: Positive for fever and fatigue. HEENT: Sinus drainage. No sore throat. RESPIRATORY: Cough productive of yellow sputum. No congestion. CARDIOVASCULAR: Positive for shortness of breath. No atypical chest pain for coronary artery disease. No angina, CHF symptoms or palpitations. GASTROINTESTINAL: No appetite. No melena or abdominal pain. No GERD. GENITOURINARY: No hematuria, no polyuria. FIREBRICK LAYER: Positive for headache. No blackout, no dizziness, no double vision. MUSCULOSKELETAL: Osteoarthritis pain. ENDOCRINE: No weight loss, no weight gain. SKIN: Not dry, no rash. PSYCHIATRIC: Not anxious, no depression, no suicidal thoughts, no homicidal thoughts. SOCIAL HISTORY: . Two children. Nonsmoker. No alcohol use. No history of ilicit drug use. FAMILY HISTORY: Father . Mother . One brother. No sisters. MEDICATIONS: Aricept 10 mg p.o. daily in the evening Celexa 20 mg one p.o. daily Coreg 6.25 mg p.o. two times per day with food Pravachol 40 mg p.o. once daily Xarelto 20 mg p.o. once daily with evening meal Memantine 10 mg p.o. two times per day Vitamin B complex [id number] q.a.m. Levothyroxine 50 mcg p.o. once daily Aspirin 81 mg p.o. once daily ALLERGIES: CODEINE, , PERCODAN, TETANUS PHYSICAL EXAMINATION: V/S: Pulse 92, BP 102/60, temperature 96.6, 02 sat 94%. Weight 179.4, Height 5' 3". BMI 31.8. GENERAL APPEARANCE: Oriented times three. HEENT: Pale. Yellow sputum. NECK: No JVP, no bruits. RESPIRATORY: Lungs have decreased breath sounds with bilateral rales, expiratory wheeze. CARDIOVASCULAR: S1, S2, no S3, no murmurs. No cyanosis, clubbing. No ascites. GI/ABDOMEN: No tenderness. Bowel sounds are active. EXTREMITIES: No edema, pulses +1, equal. FIREBRICK LAYER: Deep tendon reflexes, sensory, motor and gait all normal. RECTAL/PELVIC: Colonoscopy - Dr. Darden 04/02. Pelvic: Hysterectomy. Mammogram 05/06 [facility]. ASSESSMENT: 1. ACUTE PNEUMONITIS 2. FEVER 3. SHORTNESS OF BREATH 4. ISCHEMIA STROKE 5. ATRIAL FIBRILLATION ON XARELTO 6. COPD/ASTHMA 7. ALZHEIMER'S DEMENTIA 8. HYPOTHYROIDISM 9. DARYN 10. PSVT 11. DEPRESSION - CELEXA HELPS 12. MODERATE MR 13. MVP/ECHO 01/06 14. RIGHT TKR 15. B12 DEFICIENCY PLAN: 1. Routine telemetry orders, no cardiac markers 2. CBC/CMP now and daily 3. Chest x-ray not done (had last night) 4. UA with culture 5. Rapid flu A & B 6. Continue home medications 7. Rocephin 1 gm IV daily 8. NS @ 75 cc/hr IV 9. Zithromax 500 mg p.o. daily times three days 10. Solu-Cortef 125 mg IV q.8h 11. T4, TSH 12. Xopenex nebs t.i.d. scheduled 13. 02 at 1-2L p.r.n. 14. Regular diet 15. Ativan 1 mg q.h.s. p.r.n. p.o. TIME SPENT: More than 70 minutes. MTDD
== END 2018-07-21 13:22 | disposition home or self-care (01) | DRG 203 ==
LOC: MEDSURG B 15:45
PROVIDERS: ADMIT Internal Medicine; ATTEND Internal Medicine
DX: J40 Bronchitis, not specified as acute or chronic (principal); I10 Essential (primary) hypertension; I48.91 Unspecified atrial fibrillation; E78.5 Hyperlipidemia, unspecified; G30.9 Alzheimer's disease, unspecified; F02.80 Dementia in other diseases classified elsewhere, unspecified severity, without behavioral disturbance, psychotic disturbance, mood disturbance, and anxiety; J44.9 Chronic obstructive pulmonary disease, unspecified; M47.9 Spondylosis, unspecified; Z79.01 Long term (current) use of anticoagulants
CPT/HCPCS: 36415; 80053; 81001; 84439; 84443; 85007; 85025; 86710; 87502; 93005; 93010; 94640; 99223; 99232; 99239

== ENCOUNTER 2018-09-10 18:53 | Emergency (ER) | payer OTHER ==
[2018-09-10 19:00] VITALS: BP 107/71; TEMP 97.8; BMI 28.1
--- NOTE | 2018-09-10 19:07 | ED.PDOC ---
General ED Provider: Dr. MADDISON RENDON Chief Complaint: Fall Stated Complaint: Fell and struck head-states was getting into bed and fell striking head on hard object -sustained injury to head. Denies LOC. Has some wine to drink today-Granddaughter states she was drinking out of the wine bottle all day Time Seen by Physician: 19:05 Mode of Arrival: Ambulance Information Source: Patient Exam Limitations: No limitations Primary Care Provider: MARKEL ZUNIGA Nursing and Triage Documentation Reviewed and Agree: Yes Does patient meet sepsis criteria?: No System Inflammatory Response Syndrome: Not Applicable Sepsis Protocol: For patient's 13 years and over: Temp is 96.8 and below OR 101 and greater Pulse >90 BPM Resp >20/minute Acutely Altered Mental Status Are patient's symptoms suggestive of a new infection, such as: -Pneumonia -Skin, Soft Tissue -Endocarditis -UTI -Bone, Joint Infection -Implantable Device -Acute Abdominal Infection -Wound Infection -Meningitis -Blood Stream Catheter Infection -Unknown Trauma/Injury Complaint Exam - Head Injury Complaint/Exam Location of Pain: Reports: Scalp Mechanism of Injury: Reports: Trauma Onset/Duration: earlier this evening Symptoms Are: Still present Initial Severity: Moderate Current Severity: Moderate Character: Reports: Sharp Aggravating: Reports: None Alleviating: Reports: None Associated Signs and Symptoms: Reports: Memory loss (Chronic-dementia) Loss of Consciousness: None Related History: Denies: Similar episode SDH Risk Factors: Present: None Cervical Spine Injury Risk Factors: Present: None Related Surgical History: Reports: None C-Collar in Place: Yes Immobilization Removed Post Exam: No Head Injury Findings: Present: Normal findings Focal Weakness: Present: None Focal Sensory Loss: Present: None Gait: Unable Gag Reflex Present: Yes Finger to Nose: Normal Babinski Sign: Negative Right, Negative Left Differential Diagnoses: Other (Closed head injury) Review of Systems - Review Of Systems Constitutional: Reports: No symptoms Eyes: Reports: No symptoms Ears, Nose, Mouth, Throat: Reports: No symptoms Respiratory: Reports: No symptoms Cardiac: Reports: No symptoms GI: Reports: No symptoms : Reports: No symptoms Musculoskeletal: Reports: No symptoms Skin: Reports: No symptoms Neurological: Reports: Cognitive dysfunction Endocrine: Reports: No symptoms Hematologic/Lymphatic: Reports: No symptoms All Other Systems: Reviewed and Negative Past Medical History - Past Medical History Previously Healthy: Yes Endocrine: Reports: Hypothyroid, Dyslipidemia Cardiovascular: Reports: None Respiratory: Reports: None Hematological: Reports: None Gastrointestinal: Reports: None Genitourinary: Reports: None Neuro/Psych: Reports: Depression, Dementia Musculoskeletal: Reports: None Cancer: Reports: None Last Menstrual Period: N/A - Surgical History General Surgical History: Reports: Hysterectomy, Orthopedic (Right Knee Replacement ) - Family History Family History: Reports: Unknown - Social History Smoking Status: Never smoker Hx Substance Use: No Alcohol Screening: Occasionally - Immunizations Tetanus Shot up to Date: No Physical Exam - Physical Exam Appearance: Well-appearing, No pain distress, Well-nourished, Obese Ill-appearing: Mild Pain Distress: Mild Eyes: CARMEN, EOMI, Conjunctiva clear ENT: Ears normal, Nose normal, Oropharynx normal Neck: Supple Respiratory: Airway patent, Breath sounds clear, Breath sounds equal, Respirations nonlabored Cardiovascular: RRR, Pulses normal, No rub, No murmur GI/: Soft, Nontender, No masses, Bowel sounds normal, No Organomegaly Musculoskeletal: Normal strength, ROM intact, No edema, No calf tenderness Skin: Warm (Hair saturate dried blood. Small 3-4 mm abrasion wound rt posterior scalp), Dry, Normal color Neurological: Sensation intact, Motor intact, Reflexes intact, Cranial nerves intact, Alert, Oriented Psychiatric: Affect appropriate, Mood appropriate Critical Care Note - Critical Care Note Total Time (mins): 60 Course - Course Hematology/Chemistry: 09/10/18 19:24 09/10/18 19:24 Orders, Labs, Meds: Lab Review 09/10/18 09/10/18 09/10/18 19:21 19:24 19:24 WBC 5.67 RBC 3.95 L Hgb 13.4 Hct 40.4 MCV 102.3 H MCH 33.9 H MCHC 33.2 RDW Coeff of Ekv 13.0 Plt Count 260 Immature Gran % (Auto) 0.2 Neut % (Auto) 49.5 Lymph % (Auto) 41.3 Hale % (Auto) 5.1 Eos % (Auto) 3.4 Baso % (Auto) 0.5 Immature Gran # (Auto) 0.0 Neut # (Auto) 2.8 Lymph # (Auto) 2.3 Hale # (Auto) 0.3 L Eos # (Auto) 0.2 Baso # (Auto) 0.0 Sodium 142.3 Potassium 4.16 Chloride 105.9 Carbon Dioxide 23.2 Anion Gap 17.36 BUN 12.7 Creatinine 0.88 Estimated GFR (MDRD) 62.00 BUN/Creatinine Ratio 14.43 Glucose 109.5 H Calcium 9.13 Total Bilirubin 0.40 AST 37.3 H ALT 19.2 Alkaline Phosphatase 62.2 Total Protein 7.24 Albumin 4.23 Globulin 3.01 Albumin/Globulin Ratio 1.40 Plasma/Serum Alcohol 173.8 H Orders Category Date Time Status ALCOHOL LEVEL [BLOOD ALCOHOL] Stat LAB 09/10/18 19:21 Completed CBC W/ AUTO DIFF Stat LAB 09/10/18 19:24 Completed CMP [COMPREHENSIVE METABOLIC PANEL] Stat LAB 09/10/18 19:[address] CERVICAL SPINE W/O CONTRAST Stat RADS 09/10/18 19:[address] HEAD W/O CONTRAST Stat RADS 09/10/18 19:04 Completed Vital Signs: Temp Pulse Resp BP Pulse Ox 09/10/18 18:53 97.8 F 78 18 107/71 98 Departure - Departure Time of Disposition: 22:25 Disposition: PLACED OBSERVATION Discharge Problem: Contusion of parietal region of scalp, Abrasion of scalp, Dementia, Chronic alcohol use Instructions: Acute Wound Care (ED), Head Injury (ED) Condition: Good Pt referred to PMD for follow-up: Yes IPMP verified?: No Additional Instructions: Encouraged patient to take her meds Discouraged use of alcohol Ice pack to area of swelling scalp Monitor for recurrent bleeding Follow up ER as needed Allergies/Adverse Reactions: Allergies codiene Allergy (Uncoded 09/10/18 18:58) tetanus shot Allergy (Uncoded 09/10/18 18:58) Home Medications: Ambulatory Orders Aspirin [Aspir 81] 81 mg PO QAM 10/28/15 Carvedilol 6.25 mg PO BID 10/28/15 Citalopram Hydrobromide [Celexa] 20 mg PO BEDTIME 10/28/15 Donepezil HCl 10 mg PO BEDTIME 10/28/15 Levothyroxine Sodium 50 mcg PO BEDTIME 10/28/15 Pravastatin Sodium 40 mg PO BEDTIME 10/28/15 Vitamin B Complex 1 each PO DAILY 10/28/15 Memantine HCl [Namenda] 10 mg PO BID #60 tablet 12/29/16 Rivaroxaban [Xarelto] 20 mg PO 1730 07/19/18 Cefdinir [Omnicef] 500 mg PO BID 7 Days capsule 07/21/18 Prednisone 10 mg PO BIDWM 5 Days #10 tablet 07/21/18 Disposition Discussed With: Patient, Family (Wound care directions)
--- NOTE | 2018-09-10 20:06 | CT ---
EXAM: CT scan brain without contrast HISTORY: Fall COMPARISON: CT scan brain 05/15/2014 FINDINGS: Contiguous axial images obtained from skull base to the convexities without contrast utili zing 5-mm collimation. Sagittal and coronal options were imaged and reviewed.. The ventricles and C SF spaces are prominent compared with age appropriate atrophy.. There is periventricular hypodensity noted by with chronic microvascular disease. Remote lacunar infarct is seen in the right capsular r egion. Atherosclerotic changes are seen involving cavernous internal carotid arteries. Mucoperioste al thickening is seen within the left maxillary sinus. Scalp swelling is seen in the left parietal r egion. IMPRESSION: No acute intracranial findings. Left parietal scalp swelling with intact calvarium Benign sinus disease
--- NOTE | 2018-09-10 20:10 | CT ---
EXAM: CT cervical spine without contrast HISTORY: Fall, head injury TECHNIQUE: Multi-slice transaxial helical with coronal and sagittal reformatted views. COMPARISON: None FINDINGS: There is minimal anterior listhesis of C2 on C3 measuring approximate 1.4 mm. There is minimal retro listhesis of C3 on C4 measuring approximate 1.7 mm. There is 2 mm of retrolisthesis of C4 on C5. Ad vanced multilevel disc space narrowing with endplate osteophytosis is seen. The visualized vertebral body heights appear maintained. Mild multilevel facet osteoarthritis is present. The facets appear grossly aligned. There is incomplete fusion of the posterior C1 arch, a normal variant. No evidenc e of displaced cervical spine fracture is seen. Multilevel mild central canal narrowing is seen secon val transverse splenic ridge. Multilevel up to severe neural foraminal narrowing is seen, worst at C3-C4. Intracranial atrophy is present. The visualized mastoid air cells appear well aerated. Carotid athe rosclerosis is present. Minimal apical scarring changes are present. IMPRESSION: 1. No acute displaced cervical spine fracture. 2. Multilevel minimal grade 1 cervical listhesis as detailed above spanning C2 - C5. 3. Advanced multilevel cervical disc disease as detailed above.
== END 2018-09-10 20:45 | disposition home or self-care (01) ==
LOC: ED 18:53
DX: S00.03XA Contusion of scalp, initial encounter (principal); S00.01XA Abrasion of scalp, initial encounter; W19.XXXA Unspecified fall, initial encounter; F03.90 Unspecified dementia, unspecified severity, without behavioral disturbance, psychotic disturbance, mood disturbance, and anxiety; Z72.89 Other problems related to lifestyle; E03.9 Hypothyroidism, unspecified; E78.5 Hyperlipidemia, unspecified; Z79.899 Other long term (current) drug therapy
CPT/HCPCS: 36415; 80053; 80307; 85025; 99283

== ENCOUNTER 2018-11-20 12:13 | Outpatient (CLI) ==
--- NOTE | 2018-11-20 13:01 | DI ---
EXAM: Three views of the thoracic spine. History: Thoracic spine pain. Findings: Kyphoscoliosis. No acute fracture or subluxation of the thoracic spine. Moderate multile rosa disc space narrowing with endplate sclerosis and osteophyte formation. Impression: 1. No acute osseous abnormality. 2. Moderate degenerative disc disease. 3. Kyphoscoliosis
--- NOTE | 2018-11-20 13:02 | DI ---
EXAM: Three views of the lumbar spine. History: Lower back pain. Comparison: Lumbar spine radiograph 06/01/2016 Findings: Atherosclerotic vascular calcifications. Severe multilevel disc space narrowing with endp late sclerosis and osteophyte formation progressed compared to the prior study. Moderate to severe f acet hypertrophy within the lower lumbar spine. No acute fracture or subluxation. Impression: 1. No acute osseous abnormality of the lumbar spine. 2. Severe degenerative changes progressed compared to the prior study
== END 2018-11-20 12:14 | disposition home or self-care (01) ==
LOC: RAD 12:13
PROVIDERS: ATTEND Internal Medicine
DX: M54.5 Low back pain (principal)